=== PATIENT | female | born 1985 | race Caucasian/White ===

== ENCOUNTER → 2018-03-14 13:59 | Outpatient (CLI) | payer MEDICAID, SELFPAY ==
[2018-03-14 15:04] LABS: Hemoglobin A1C 10.6 % (4.5-6.2)
[2018-03-14 15:49] LABS: ALT 85 U/L (12-78); AST 96 U/L (15-37); Albumin 3.7 g/dL (3.4-5.0); Alkaline Phosphatase 72 U/L (46-116); Anion Gap 13.3 mmol/L (3-11); BUN 11 mg/dL (7-18); Bilirubin, Total 0.4 mg/dL (0.2-1.0); CO2 23.7 mmol/L (21.0-32.0); CREATININE 0.85 mg/dL (0.55-1.02); Calcium 9.2 mg/dL (8.5-10.1); Chloride 98 mmol/L (98-107); Cholesterol 247 mg/dL (50-200); Glucose 344 mg/dL (70-100); HDL Cholesterol 40 mg/dL (40-60); LDL CHOLESTEROL 168 mg/dL (<100); Potassium 4.5 mmol/L (3.5-5.1); Sodium 135 mmol/L (136-145); TSH 1.69 uIU/mL (0.358-3.74); Total Protein 7.7 g/dL (6.4-8.2); Triglyceride 242 mg/dL (30-150)
== END ==
PROVIDERS: PCP Family Medicine; Visit Provider Family Medicine
DX: E11.65 Type 2 diabetes mellitus with hyperglycemia (principal); E03.9 Hypothyroidism, unspecified
CPT/HCPCS: 36415; 80053; 80061; 83721; 82043; 82570; 83036; 84443

== ENCOUNTER 2018-05-21 09:06 | Outpatient (CLI) | payer MEDICAID, SELFPAY ==
[2018-05-21 10:29] LABS: HCT 40.3 % (36.0-46.0); HGB 13.4 g/dL (12.0-15.5); Mean Corp. HGB Concentration 33.3 g/dL (32.0-36.0); Mean Corpuscular Volume 84.3 fL (80-95); Mean Platelet Volume 12.2 fL (8.0-11.0); Platelet Count 155 x1000/uL (130-400); RBC 4.78 m/cumm (4.00-5.20); RBC Distribution Width 13.1 % (11.7-14.6); White Blood Cell Count 6.42 k/cumm (4.4-10.8)
[2018-05-21 11:28] LABS: ALT 60 U/L (12-78); AST 51 U/L (15-37); Albumin 3.5 g/dL (3.4-5.0); Alkaline Phosphatase 63 U/L (46-116); Anion Gap 10.5 mmol/L (3-11); BUN 11 mg/dL (7-18); Bilirubin, Total 0.3 mg/dL (0.2-1.0); CO2 27.5 mmol/L (21.0-32.0); CREATININE 0.77 mg/dL (0.55-1.02); Chloride 98 mmol/L (98-107); Glucose 363 mg/dL (70-100); Potassium 4.3 mmol/L (3.5-5.1); Sodium 136 mmol/L (136-145); Total Protein 7.1 g/dL (6.4-8.2)
[2018-05-21 11:31] LABS: HCG Quant, Pregnancy < 1 mIU/mL (1-3)
== END 2018-05-21 09:26 ==
PROVIDERS: PCP Family Medicine; Visit Provider Obstetrics & Gynecology Gynecology
DX: Z30.2 Encounter for sterilization (principal); E11.9 Type 2 diabetes mellitus without complications; K21.9 Gastro-esophageal reflux disease without esophagitis; E66.9 Obesity, unspecified; Z01.818 Encounter for other preprocedural examination
CPT/HCPCS: 36415; 80053; 85027; 86850; 86900; 86901; 84702

== ENCOUNTER 2018-09-08 12:41 | Emergency (ER) | payer MEDICAID, SELFPAY ==
[2018-09-08 13:02] VITALS: BP 146/92; PULSE 98; RESP 16; TEMP 36.7; O2SAT 100
[2018-09-08] MEDS: Amoxicillin 500 MG CAP PO (13:30)
--- NOTE | 2018-09-08 13:38 | W.ED.GENAD ---
Discharge Plan Disposition Patient Disposition: HOME Condition: Stable Discharge Details Chief Complaint: RespSymp Clinical Impression: Acute streptococcal pharyngitis, URI (upper respiratory infection) Primary Care Provider: Abbey Musa ED Provider: Alexandru Delgadillo Home Meds and New Rx's Prescriptions: New benzonatate 200 mg capsule 200 mg PO TID PRN (Reason: cough) Qty: 30 RF: 0 amoxicillin 500 mg capsule 500 mg PO BID Qty: 20 RF: 0 Continued ibuprofen 600 mg tablet 600 mg PO TID PRN (Reason: pain) Qty: 90 RF: 2 ProAir HFA 8.5 GM HFA aerosol inhaler 2 puff Inhalation Q4H PRN Qty: 1 RF: 6 aspirin 81 MG tablet,chewable 81 mg PO DAILY Qty: 90 RF: 4 lancets 1 EACH misc 1 ea Miscellaneous Fasting, PP and HS Qty: 400 RF: 12 Blood Glucose Test 1 EACH strip 1 ea Miscellaneous 6 times a day Qty: 360 RF: 5 medroxyprogesterone [Depo-Provera] 150 MG/1 ML suspension 150 mg IM [id number] Qty: 1 RF: 4 omeprazole 20 MG capsule,delayed release(DR/EC) 20 mg PO DAILY Qty: 90 RF: 4 Rosuvastatin Calcium 40 MG tablet 40 mg PO DAILY Qty: 90 RF: 4 pen needle, diabetic [BD Ultra-Fine Susy Pen Needle] 32 gauge x 5/32 needle 1 ea Miscellaneous QID PRN (Reason: diabetes type 2 E11.65) Qty: 120 RF: 6 Lantus Solostar U-100 Insulin 100 unit/mL (3 mL) insulin pen 70 unit subcut BID Qty: 2 RF: 5 Novolog Flexpen U-100 Insulin 100 unit/mL insulin pen 55 - 80 unit subcut TID Qty: 3 RF: 5 lisinopril 10 mg tablet 10 mg PO DAILY Qty: 90 RF: 4 No Action amitriptyline 75 mg tablet 75 mg PO HS Qty: 90 RF: 4 Discharge Instructions Instructions: Strep Throat (ED), Upper Respiratory Infection (ED) Additional Instructions: Take antibiotics as prescribed and until fully complete. You may continue to use [id number] therapies along with prescribed cough medication as needed for secondary symptoms. Stay well-hydrated and get plenty of rest and return to emergency department as needed for reassessment or follow-up with your primary care provider if not improving Stand Alone Forms: Work Release Referrals: Abbey Musa MD [Primary Care Provider] - (As needed for reassessment or if not improving) Discharge Data Discharge Date/Time-TO BE ENTERED AT DEPARTURE: 09/08/18 13:48 Medical Decision Making Patient presenting to the emergency department for upper respiratory tract infectious type symptoms. Patient states that these of been on for 3 or 4 days. Given patient's report of sore throat operations staff specialist security initiated protocol for rapid strep testing. Physical exam shows typical URI type symptoms without any signs of pneumonia, meningitis, retropharyngeal or peritonsillar abscess, epiglottitis, or sepsis. Patient is nontoxic in appearance. Rapid strep test shows positive for streptococcal illness. Discussed with patient risk versus benefit of amoxicillin therapy. Patient was prescribed amoxicillin along with Tessalon Perles and informed to continue rest and hydration along with using [id number] symptomatic medication if needed. Patient to return for new or worsening symptoms otherwise follow-up with primary care. After discussion of diagnosis and plan of care patient has no further needs, questions, or concerns and states clear understanding to return to the emergency department for any worsening symptoms. HPI General Mode of arrival: ambulatory. Date/Time Provider Initiated Documentation: 09/08/18 13:27. Limitations to Documentation: no limitations. Information obtained by: RN notes reviewed. History of Present Illness 33 year old F presents to the emergency department with the chief complaint of cold symptoms, described as moderate, with intensity rated at 6. Quality is described as aching, Patient started experiencing this day(s) (4) Related Data Home Medications Medication Instructions Recorded Confirmed ProAir HFA 2 puff INHALATION Q4H PRN #1 07/15/16 09/08/18 inhaler aspirin 81 mg PO DAILY #90 tab-cap 05/31/17 09/08/18 lancets #400 ea 07/11/17 09/08/18 Blood Glucose Test #360 strip 10/02/17 09/08/18 medroxyprogesterone [Depo-Provera] 150 mg IM [id number] #1 vial 02/07/18 09/08/18 omeprazole 20 mg PO DAILY #90 tab-cap 02/07/18 09/08/18 pen needle, diabetic 32 gauge x #120 ndl 05/09/18 09/08/18 insulin glargine (U-100) 100 70 unit SUBCUT BID #2 ml 06/13/18 09/08/18 unit/mL (3 mL) subcutaneous pen insulin aspart U- 100 100 unit/mL 55 - 80 unit SUBCUT TID #3 box 06/14/18 09/08/18 subcutaneous pen ibuprofen 600 mg tablet 600 mg PO TID PRN #90 tab 06/20/18 09/08/18 lisinopril 10 mg tablet 10 mg PO DAILY #90 tab-cap 08/02/18 09/08/18 amoxicillin 500 mg PO BID #20 cap 09/08/18 benzonatate 200 mg PO TID PRN #30 cap 09/08/18 amitriptyline 75 mg tablet 75 mg PO HS #90 tab-cap 09/10/18 Previous Rx's Medication Instructions Recorded aspirin 81 mg PO DAILY #90 tab-cap 05/31/17 lancets #400 ea 07/11/17 Blood Glucose Test #360 strip 10/02/17 medroxyprogesterone [Depo-Provera] 150 mg IM [id number] #1 vial 02/07/18 omeprazole 20 mg PO DAILY #90 tab-cap 02/07/18 pen needle, diabetic 32 gauge x #120 ndl 05/09/18 insulin glargine (U-100) 100 70 unit SUBCUT BID #2 ml 06/13/18 unit/mL (3 mL) subcutaneous pen insulin aspart U- 100 100 unit/mL 55 - 80 unit SUBCUT TID #3 box 06/14/18 subcutaneous pen ibuprofen 600 mg tablet 600 mg PO TID PRN #90 tab 06/20/18 lisinopril 10 mg tablet 10 mg PO DAILY #90 tab-cap 08/02/18 amoxicillin 500 mg PO BID #20 cap 09/08/18 benzonatate 200 mg PO TID PRN #30 cap 09/08/18 amitriptyline 75 mg tablet 75 mg PO HS #90 tab-cap 09/10/18 Allergies Allergy/AdvReac Type Severity Reaction Status Date / Time Latex, Natural Rubber Allergy Mild Skin Rash Unverified 09/08/18 13:12 metformin AdvReac Unknown DIARRHEA Unverified 09/08/18 13:12 General Stated Complaint: RespSymp JED: 4 Review of Systems Constitutional Reports body ache(s), Reports chills, Reports fever(s), Reports headache(s) and Reports malaise Eyes Denies eye discharge ENT Reports as per HPI, Denies ear discharge, Denies otalgia, Reports headache(s), Reports nasal congestion, Reports nasal discharge, Denies neck pain, Reports sinus pain, Reports sinus pressure, Reports sore throat and Denies throat swelling Cardiovascular Denies chest pain and Denies dyspnea Respiratory Reports cough and Denies dyspnea Musculoskeletal Denies joint swelling and Denies neck pain Integumentary/Breasts Denies rash Neurologic Reports headache(s) Allergic/Immunologic Denies throat swelling PFSH Medical History Anxiety Candidiasis of skin Carpal tunnel syndrome Diabetes mellitus Drusen of optic disc Lipids abnormal Morbid obesity Rh neg trauma Surgical History section (06/22/16) EGD - IV Sedation (~08/2011) Endoscopic Carpal Tunnel release Left wrist Sigmoidoscopy Family History Mother Substance abuse Diabetes Depression Father Essential hypertension Hyperlipidemia Brother Substance abuse Depression Grandfather No problems noted. Grandfather Diabetes Heart disease Hyperlipidemia Stroke Grandmother Personal history of malignant neoplasm Grandmother Diabetes Heart disease Stroke Sister Diabetes Sister No problems noted. Brother Substance abuse Diabetes Depression Social History adopted: Yes number of children: 3 highest education level completed: high school graduate current occupation: stay at home mom Smoking and Tabacco status: Former Tobacco Use alcohol intake: never Seatbelt use: always Exam Const General: cooperative, comfortable and no acute distress Orientation: alert and awake [facility] Head: normal to inspection, normocephalic and atraumatic Ears: hearing grossly normal bilaterally and TM's normal bilaterally General nose exam: external nose normal Face and sinus: normal facial exam, sinuses nontender and no erythema Mouth: oral mucosae normal, no drooling, no muffled voice and no trismus Throat: posterior oropharynx normal, uvula midline and abnormal tonsil bilaterally erythema and hypertrophy 1+ Neck Neck: normal visual inspection, full ROM, no meningeal signs, trachea midline, supple and lymphadenopathy (Mild anterior cervical) Resp Effort & Inspection: normal respiratory effort, able to speak in complete sentences and cough Quality of cough: dry Auscultation: clear to auscultation bilaterally Cardio Rate: regular rate Rhythm: regular rhythm Heart Sounds: S1 normal, S2 normal, normal S1 and S2, no click, no gallops, no murmurs and no rubs Skin General skin exam: no rashes or lesions noted and dry skin (warm) Neuro General: alert, awake, oriented x3, gait normal and moves all extremities Cognition: normal cognition Speech: speech normal Course Vital Signs Temperature 36.7 C 09/08/18 13:02 Pulse 98 H 09/08/18 13:02 Respiratory Rate 16 09/08/18 13:02 Blood Pressure 146/92 H 09/08/18 13:02 Pulse Oximetry 100 09/08/18 13:02 Temperature 36.7 C 09/08/18 13:02 Temperature Source Temporal Artery Scan 09/08/18 13:02 Pulse 98 H 09/08/18 13:02 Respiratory Rate 16 09/08/18 13:02 Respiratory Effort Non-Labored 09/08/18 13:13 Respiratory Depth Normal 09/08/18 13:13 Blood Pressure 146/92 H 09/08/18 13:02 Blood Pressure Position Sitting 09/08/18 13:02 Pulse Oximetry 100 09/08/18 13:02 Oxygen Delivery Method Room Air 09/08/18 13:02 Oxygen Flow Rate 0 09/08/18 13:02 Lab/Test Results Lab/Test Results: POC Strep Test-WOODY(Rapid) Start: 09/08/18 13:07 Freq: .Rapid Strep Test Status: Active Protocol: Document 09/08/18 13:16 SGL (Rec: 09/08/18 13:17 [id number] [id number]) Strep test-WOODY(Rapid)-POC POC-Strep test-WOODY (Rapid) Positive POC-Strep test-WOODY (Rapid) Positive
== END 2018-09-08 13:48 | disposition home or self-care (01) ==
PROVIDERS: Emergency Provider Nurse Practitioner Family; PCP Family Medicine
DX: J02.0 Streptococcal pharyngitis (principal)
CPT/HCPCS: 87880; 99283

== ENCOUNTER 2018-10-11 08:54 | Emergency (ER) | payer MEDICAID, SELFPAY ==
[2018-10-11 09:26] VITALS: BP 126/78; PULSE 105; RESP 16; TEMP 36.4; O2SAT 97
--- NOTE | 2018-10-11 10:53 | ED.GENADUL_ITS ---
Discharge Plan Disposition Patient Disposition: HOME Condition: Stable Discharge Details Chief Complaint: Sorethroat Clinical Impression: Acute streptococcal pharyngitis Primary Care Provider: Abbey Musa ED Provider: Alexandru Delgadillo Home Meds and New Rx's Prescriptions: New cephalexin 500 mg tablet 500 mg PO BID Qty: 20 RF: 0 Continued ibuprofen 600 mg tablet 600 mg PO TID PRN (Reason: pain) Qty: 90 RF: 2 [place] DM MV Pack See Patient Comments .ROUTE .COMPLEX RF: 0 albuterol sulfate [ProAir HFA] 8.5 GM HFA aerosol inhaler 2 puff Inhalation Q4H PRN Qty: 1 RF: 6 aspirin 81 MG tablet,chewable 81 mg PO DAILY Qty: 90 RF: 4 lancets 1 EACH misc 1 ea Miscellaneous Fasting, PP and HS Qty: 400 RF: 12 Blood Glucose Test 1 EACH strip 1 ea Miscellaneous 6 times a day Qty: 360 RF: 5 medroxyprogesterone [Depo-Provera] 150 MG/1 ML suspension 150 mg IM [id number] Qty: 1 RF: 4 omeprazole 20 MG capsule,delayed release(DR/EC) 20 mg PO DAILY Qty: 90 RF: 4 Rosuvastatin Calcium 40 MG tablet 40 mg PO DAILY Qty: 90 RF: 4 pen needle, diabetic [BD Ultra-Fine Susy Pen Needle] 32 gauge x 5/32 needle 1 ea Miscellaneous QID PRN (Reason: diabetes type 2 E11.65) Qty: 120 RF: 6 Lantus Solostar U-100 Insulin 100 unit/mL (3 mL) insulin pen 70 unit subcut BID Qty: 2 RF: 5 Novolog Flexpen U-100 Insulin 100 unit/mL insulin pen 55 - 80 unit subcut TID Qty: 3 RF: 5 lisinopril 10 mg tablet 10 mg PO DAILY Qty: 90 RF: 4 amitriptyline 75 mg tablet 75 mg PO HS Qty: 90 RF: 4 Discharge Instructions Instructions: Strep Throat (ED) Additional Instructions: Continue to take [id number] pain meds as needed. Take your antibiotic for the full 10 days and follow-up with your primary care provider for reassessment if not improving or return to emergency department for any new or worsening symptoms or further concerns you may have. Stand Alone Forms: Work Release Referrals: Abbey Musa MD [Primary Care Provider] - (As needed for reassessment if not improving) Discharge Data Discharge Date/Time-TO BE ENTERED AT DEPARTURE: 10/11/18 11:25 Medical Decision Making Patient presenting to the emergency department for chief complaint of sore throat. Patient states that this began 2 days ago. She does state malaise, mild dry nonproductive cough but significant sore throat and nausea. Patient has bilateral tonsillary hypertrophy with exudates and erythema, mild anterior cervical lymphadenopathy, otherwise clear lung sounds normal HEENT exam. Patient has no signs of meningitis, peritonsillar or retropharyngeal abscess, or epiglottitis. staffing specialist initiated protocol for rapid strep testing which is positive. Patient was recently on amoxicillin for strep pharyngitis 1 month ago. Patient placed up on Keflex for 10 days. Return precautions discussed. After discussion of diagnosis and plan of care patient has no further needs, questions, or concerns and states clear understanding to return to the emergency department for any worsening symptoms. HPI General Mode of arrival: ambulatory . Date/Time Provider Initiated Documentation: 10/11/18 10:03 . Limitations to Documentation: no limitations . Information obtained by: patient and RN notes reviewed . History of Present Illness 33 year old F presents to the emergency department with the chief complaint of sore throat, described as moderate, with intensity rated at 7. Quality is described as aching, and is localized to the mouth (sore throat). Patient started experiencing this day(s) (2) and it has been constant. No relieving factors improve symptom(s), Patient notes no other symptoms.. Related Data Home Medications Medication Instructions Recorded Confirmed albuterol sulfate [ProAir HFA] 2 puff INHALATION Q4H PRN #1 07/15/16 10/11/18 inhaler aspirin 81 mg PO DAILY #90 tab-cap 05/31/17 10/11/18 lancets #400 ea 07/11/17 09/08/18 Blood Glucose Test #360 strip 10/02/17 10/03/18 medroxyprogesterone [Depo-Provera] 150 mg IM [id number] #1 vial 02/07/18 10/11/18 omeprazole 20 mg PO DAILY #90 tab-cap 02/07/18 10/11/18 pen needle, diabetic 32 gauge x #120 ndl 05/09/18 10/03/18 insulin glargine (U-100) 100 70 unit SUBCUT BID #2 ml 06/13/18 10/11/18 unit/mL (3 mL) subcutaneous pen insulin aspart U- 100 100 unit/mL 55 - 80 unit SUBCUT TID #3 box 06/14/18 10/11/18 subcutaneous pen ibuprofen 600 mg tablet 600 mg PO TID PRN #90 tab 06/20/18 10/11/18 lisinopril 10 mg tablet 10 mg PO DAILY #90 tab-cap 08/02/18 10/11/18 amitriptyline 75 mg tablet 75 mg PO HS #90 tab-cap 09/10/18 10/11/18 [place] DM MV Pack See Rx Instructions .ROUTE .COMPLEX 10/03/18 10/11/18 cephalexin 500 mg PO BID #20 tab 10/11/18 Previous Rx's Medication Instructions Recorded aspirin 81 mg PO DAILY #90 tab-cap 05/31/17 lancets #400 ea 07/11/17 Blood Glucose Test #360 strip 10/02/17 medroxyprogesterone [Depo-Provera] 150 mg IM [id number] #1 vial 02/07/18 omeprazole 20 mg PO DAILY #90 tab-cap 02/07/18 pen needle, diabetic 32 gauge x #120 ndl 05/09/18 insulin glargine (U-100) 100 70 unit SUBCUT BID #2 ml 06/13/18 unit/mL (3 mL) subcutaneous pen insulin aspart U- 100 100 unit/mL 55 - 80 unit SUBCUT TID #3 box 06/14/18 subcutaneous pen ibuprofen 600 mg tablet 600 mg PO TID PRN #90 tab 06/20/18 lisinopril 10 mg tablet 10 mg PO DAILY #90 tab-cap 08/02/18 amitriptyline 75 mg tablet 75 mg PO HS #90 tab-cap 09/10/18 cephalexin 500 mg PO BID #20 tab 10/11/18 Allergies Allergy/AdvReac Type Severity Reaction Status Date / Time Latex, Natural Rubber Allergy Mild Skin Rash Unverified 10/11/18 09:28 metformin AdvReac Unknown DIARRHEA Unverified 10/11/18 09:28 General Stated Complaint: Sorethroat JED: 4 Review of Systems Constitutional Reports chills, Denies fever(s), Denies headache(s) and Reports malaise ENT Denies change in voice, Denies dysphagia, Denies otalgia, Denies headache(s), Denies hoarseness, Denies lip swelling, Denies mouth lesions, Denies nasal congestion, Reports odynophagia, Reports sore throat, Denies throat swelling and Denies tongue swelling Cardiovascular Denies chest pain Respiratory Denies chest congestion and Reports cough Gastrointestinal Denies dysphagia and Reports odynophagia Neurologic Denies headache(s) Allergic/Immunologic Denies lip swelling, Denies throat swelling and Denies tongue swelling PFSH Medical History Anxiety Candidiasis of skin Carpal tunnel syndrome Diabetes mellitus Drusen of optic disc Lipids abnormal Morbid obesity Rh neg trauma Surgical History section (06/22/16) EGD - IV Sedation (~08/2011) Endoscopic Carpal Tunnel release Left wrist Sigmoidoscopy Family History Mother Substance abuse Diabetes Depression Father Essential hypertension Hyperlipidemia Brother Substance abuse Depression Grandfather No problems noted. Grandfather Diabetes Heart disease Hyperlipidemia Stroke Grandmother Personal history of malignant neoplasm Grandmother Diabetes Heart disease Stroke Sister Diabetes Sister No problems noted. Brother Substance abuse Diabetes Depression Social History Smoking/Tobacco Use Status: Never Alcohol Intake: never Drug use: Never Adopted: Yes Seatbelt use: always Do you feel safe in your relationship?: Yes Exam Const General: cooperative, healthy appearing, comfortable, no acute distress and not ill appearing Orientation: alert, awake and oriented x3 HENMT Head: normal to inspection and normocephalic Ears: hearing grossly normal bilaterally, external ears normal, TM's normal bilaterally and mastoids normal General nose exam: external nose normal and nares normal Face and sinus: normal facial exam and sinuses nontender Mouth: oral mucosae normal, lip normal, tongue normal, no audible dysphonia, no drooling and no trismus Throat: uvula midline, abnormal tonsil bilaterally erythema, exudates and hypertrophy 2+ and no peritonsillar masses Neck Neck: normal visual inspection, full ROM, no meningeal signs and lymphadenopathy (mild anterior cervical) Resp Effort & Inspection: normal respiratory effort, able to speak in complete sentences and no stridor Auscultation: clear to auscultation bilaterally Cardio Rate: regular rate Rhythm: regular rhythm Heart Sounds: S1 normal and S2 normal Skin General skin exam: no rashes or lesions noted Course Vital Signs Temperature 36.4 C L 10/11/18 09:26 Pulse 105 H 10/11/18 09:26 Respiratory Rate 16 10/11/18 09:26 Blood Pressure 126/78 10/11/18 09:26 Pulse Oximetry 97 10/11/18 09:26 Temperature 36.4 C L 10/11/18 09:26 Temperature Source Skin 10/11/18 09:26 Pulse 105 H 10/11/18 09:26 Respiratory Rate 16 10/11/18 09:26 Respiratory Effort Non-Labored 10/11/18 09:26 Blood Pressure 126/78 10/11/18 09:26 Blood Pressure Position Sitting 10/11/18 09:26 Pulse Oximetry 97 10/11/18 09:26 Oxygen Delivery Method Room Air 10/11/18 09:26 Oxygen Flow Rate 0 10/11/18 09:26 Pain Level 7 10/11/18 09:26 Lab/Test Results Lab/Test Results: POC Strep Test-WOODY(Rapid) Start: 10/11/18 09:30 Freq: .Rapid Strep Test Status: Active Protocol: Document 10/11/18 09:31 MMQ (Rec: 10/11/18 09:31 MMQ [id number]) Strep test-WOODY(Rapid)-POC POC-Strep test-WOODY (Rapid) Positive POC-Strep test-WOODY (Rapid) Positive
== END 2018-10-11 11:25 | disposition home or self-care (01) ==
PROVIDERS: Emergency Provider Nurse Practitioner Family; PCP Family Medicine
DX: J02.0 Streptococcal pharyngitis (principal)
CPT/HCPCS: 87880; 99283

== ENCOUNTER 2019-05-01 12:42 | Emergency (ER) | payer SELFPAY ==
[2019-05-01 12:50] VITALS: BP 138/81; RESP 18; TEMP 36.7; O2SAT 97
--- NOTE | 2019-05-01 12:59 | W.ED.GENAD ---
Discharge Plan Disposition Patient Disposition: HOME Condition: Good Discharge Details Chief Complaint: Sorethroat Clinical Impression: Acute streptococcal pharyngitis Primary Care Provider: Abbey Musa ED Provider: Keith Morfin Home Meds and New Rx's Prescriptions: New amoxicillin 500 mg capsule 500 mg PO BID 10 Days Qty: 20 RF: 0 No Action ibuprofen 600 mg tablet 600 mg PO TID PRN (Reason: pain) Qty: 90 RF: 2 [place] DM MV Pack See Rx Instructions .ROUTE .COMPLEX RF: 0 albuterol sulfate [ProAir HFA] 8.5 GM HFA aerosol inhaler 2 puff Inhalation Q4H PRN Qty: 1 RF: 6 aspirin 81 MG tablet,chewable 81 mg PO DAILY Qty: 90 RF: 4 (DME) lancets 1 EACH misc 1 ea Miscellaneous Fasting, PP and HS Qty: 400 RF: 12 medroxyprogesterone [Depo-Provera] 150 MG/1 ML suspension 150 mg IM [id number] Qty: 1 RF: 4 omeprazole 20 MG capsule,delayed release(DR/EC) 20 mg PO DAILY Qty: 90 RF: 4 Rosuvastatin Calcium 40 MG tablet 40 mg PO DAILY Qty: 90 RF: 4 (DME) pen needle, diabetic [BD Ultra-Fine Susy Pen Needle] 32 gauge x 5/32 needle 1 ea Miscellaneous QID Qty: 120 RF: 6 Lantus Solostar U-100 Insulin 100 unit/mL (3 mL) insulin pen 70 unit subcut BID Qty: 2 RF: 5 Novolog Flexpen U-100 Insulin 100 unit/mL insulin pen 55 - 80 unit subcut TID Qty: 3 RF: 5 lisinopril 10 mg tablet 10 mg PO DAILY Qty: 90 RF: 4 amitriptyline 75 mg tablet 75 mg PO HS Qty: 90 RF: 4 (DME) Blood Glucose Test strip 1 ea Miscellaneous 6 times a day Qty: 360 RF: 5 cephalexin 500 mg tablet 500 mg PO BID Qty: 20 RF: 0 Discharge Instructions Instructions: Pharyngitis (ED) Additional Instructions: You have strep pharyngitis. Thankfully your physical exam and vital signs show no evidence of pneumonia. Please take the antibiotic as directed. Please rest, drink plenty of fluids, and take 600 mg of ibuprofen every 6 hours and up to 1000 mg of Tylenol every 6 hours. If you notice any worsening of your symptoms, or any new symptoms such as vomiting, diarrhea, fever, chills, shortness of breath, chest pain, numbness, weakness, or fainting , please return immediately to the emergency department for reevaluation. Please follow up with your primary care provider as soon as possible for reassessment and reevaluation. As always, it was a pleasure participating in your medical care today. Stand Alone Forms: Work Release Referrals: Abbey Musa MD [Primary Care Provider] - Medical Decision Making This is a pleasant 33-year-old female who presents with 2 to 3 days of sore throat runny nose cough and congestion. She is out of the window for Tamiflu. She denies any fever. Lung sounds are clear, oxygen saturation normal. Posterior oropharynx is notably erythematous with petechiae and tonsillar swelling and exudate. Strep test is positive. Patient may feel would benefit from treatment. Will start amoxicillin, recommend close follow-up with her PCP. Discussed red flags which to return. She appears clinically stable for discharge. I have extensively reviewed the treatment plan and discharge instructions with the patient. I have addressed all patient concerns at this time. The patient was made aware of what symptoms to monitor for that would warrant a return to the emergency department. Discussed the plan with the patient, they demonstrate verbal understanding and agreement with our assessment and plan at this time. HPI General Date/Time Provider Initiated Documentation: 05/01/19 12:49. HPI Narrative: This is a pleasant 33-year-old female with a past medical history of type 2 diabetes, who presents today for evaluation of cough runny nose and congestion. Symptoms have been present for the last 3 days, she has a mild sore throat, in conjunction with this. She denies any fever or chills. She denies any chest pain or shortness of breath. Denies PE risk factors such as recent long car rides, immobilization, recent surgery, prior history of DVT or PE, family history of PE or DVT, morbid obesity, exogenous estrogen and smoking, hemoptysis, history of cancer. She denies any significant headache or neck pain. She does admit to other contacts at work with similar symptoms. Related Data Home Medications Medication Instructions Recorded Confirmed albuterol sulfate [ProAir HFA] 2 puff INHALATION Q4H PRN #1 07/15/16 10/11/18 inhaler aspirin 81 mg PO DAILY #90 tab-cap 05/31/17 10/11/18 lancets #400 ea 07/11/17 09/08/18 medroxyprogesterone [Depo-Provera] 150 mg IM [id number] #1 vial 02/07/18 10/11/18 omeprazole 20 mg PO DAILY #90 tab-cap 02/07/18 10/11/18 pen needle, diabetic 32 gauge x #120 ndl 05/09/18 10/03/18 5 insulin glargine 100 unit/mL (3 70 unit SUBCUT BID #2 ml 06/13/18 10/11/18 mL) subcutaneous pen insulin aspart U-100 100 unit/mL 55 - 80 unit SUBCUT TID #3 box 06/14/18 10/11/18 (3 mL) subcutaneous pen ibuprofen 600 mg tablet 600 mg PO TID PRN #90 tab 06/20/18 10/11/18 lisinopril 10 mg tablet 10 mg PO DAILY #90 tab-cap 08/02/18 10/11/18 amitriptyline 75 mg tablet 75 mg PO HS #90 tab-cap 09/10/18 10/11/18 [place] DM MV Pack See Rx Instructions .ROUTE .COMPLEX 10/03/18 10/11/18 cephalexin 500 mg PO BID #20 tab 10/11/18 blood sugar diagnostic #360 strip 11/29/18 amoxicillin 500 mg PO BID 10 Days #20 cap 05/01/19 Previous Rx's Medication Instructions Recorded aspirin 81 mg PO DAILY #90 tab-cap 05/31/17 lancets #400 ea 07/11/17 medroxyprogesterone [Depo-Provera] 150 mg IM [id number] #1 vial 02/07/18 omeprazole 20 mg PO DAILY #90 tab-cap 02/07/18 pen needle, diabetic 32 gauge x #120 ndl 05/09/18 5 insulin glargine 100 unit/mL (3 70 unit SUBCUT BID #2 ml 06/13/18 mL) subcutaneous pen insulin aspart U-100 100 unit/mL 55 - 80 unit SUBCUT TID #3 box 06/14/18 (3 mL) subcutaneous pen ibuprofen 600 mg tablet 600 mg PO TID PRN #90 tab 06/20/18 lisinopril 10 mg tablet 10 mg PO DAILY #90 tab-cap 08/02/18 amitriptyline 75 mg tablet 75 mg PO HS #90 tab-cap 09/10/18 cephalexin 500 mg PO BID #20 tab 10/11/18 blood sugar diagnostic #360 strip 11/29/18 amoxicillin 500 mg PO BID 10 Days #20 cap 05/01/19 Allergies Allergy/AdvReac Type Severity Reaction Status Date / Time Latex, Natural Rubber Allergy Mild Skin Rash Unverified 10/11/18 09:28 metformin AdvReac Unknown DIARRHEA Unverified 10/11/18 09:28 General Stated Complaint: Sorethroat JED: 3 Review of Systems Review of Systems ROS Unobtainable: All systems reviewed & are unremarkable except as noted in HPI and below PFSH Social History Smoking/Tobacco Use Status: Former Tobacco Use Alcohol Intake: never Drug use: Occasionally Substance use type: marijuana Adopted: Yes Number of Children: 3 current occupation: stay at home mom Seatbelt use: always Do you feel safe at home: Yes Do you feel safe in your relationship?: Yes Exam Narrative Exam Narrative: 1.Const: Well-nourished, Well-developed, appearing stated age 2.Eyes: PERRL, no conjunctival injection, and symmetrical lids. 3.ENT: Atraumatic external nose and ears. Moist MM. Neck: Symmetric, trachea midline, No thyromegaly. Erythematous tonsils and posterior oropharynx, minimal petechiae, minimal tonsillar exudate. No evidence of peritonsillar abscess. Patient demonstrates good movement of cervical neck. There is no nuchal rigidity, no nuchal tenderness. Patient is able to flex the neck without any difficulty or significant pain. Negative Kernig's and Brudzinski sign. No evidence of otitis media or externa. 4.CVS: +S1/S2, No murmurs or gallops. Peripheral pulses 2+ and equal in all extremities. Brisk capillary refill in all extremities. 5.RESP: Unlabored respiratory effort. Clear to auscultation bilaterally. No wheezes rales or rhonchi 6.GI: Soft, Nontender/Nondistended, No hepatosplenomegaly. No guarding or rebound. 7.MSK: Normocephalic/Atraumatic, Extremities w/o deformity or ttp No cyanosis or clubbing, Normal movement of all extremities 8.Skin: Warm, Dry. No rashes or lesions. 9.Neuro: integration director II-XII grossly intact. Sensation grossly intact, no focal neurologic deficits. 10.Psych: (AAO) x3. Appropriate mood and affect Course Vital Signs Vital signs: Vital Signs Temperature 36.7 C 05/01/19 12:50 Respiratory Rate 18 05/01/19 12:50 Blood Pressure 138/81 05/01/19 12:50 Pulse Oximetry 97 05/01/19 12:50 Temperature 36.7 C 05/01/19 12:50 Temperature Source Temporal Artery Scan 05/01/19 12:50 Respiratory Rate 18 05/01/19 12:50 Blood Pressure 138/81 05/01/19 12:50 Pulse Oximetry 97 05/01/19 12:50 Oxygen Delivery Method Room Air 05/01/19 12:50 Oxygen Flow Rate 0 05/01/19 12:50 Pain Level 3 05/01/19 12:50
== END 2019-05-01 13:16 | disposition home or self-care (01) ==
PROVIDERS: Emergency Provider Student in an Organized Health Care Education/Training Program; PCP Family Medicine
DX: J02.0 Streptococcal pharyngitis (principal); E11.9 Type 2 diabetes mellitus without complications; Z79.4 Long term (current) use of insulin
CPT/HCPCS: 87880; 99283

== ENCOUNTER 2019-05-17 20:37 | Emergency (ER) | payer SELFPAY ==
[2019-05-17 20:41] VITALS: BP 145/69; PULSE 109; RESP 16; TEMP 36.7; O2SAT 97
--- NOTE | 2019-05-17 20:54 | ED.GENADUL_ITS ---
Discharge Plan Disposition Patient Disposition: HOME Condition: Fair Discharge Details Chief Complaint: Sorethroat Clinical Impression: Strep throat Primary Care Provider: Abbey Musa ED Provider: Yisel Demarco Home Meds and New Rx's Prescriptions: New clindamycin HCl 300 mg capsule 300 mg PO TID 10 Days Qty: 30 RF: 0 Continued ibuprofen 600 mg tablet 600 mg PO TID PRN (Reason: pain) Qty: 90 RF: 2 albuterol sulfate [ProAir HFA] 8.5 GM HFA aerosol inhaler 2 puff Inhalation Q4H PRN Qty: 1 RF: 6 aspirin 81 MG tablet,chewable 81 mg PO DAILY Qty: 90 RF: 4 (DME) lancets 1 EACH misc 1 ea Miscellaneous Fasting, PP and HS Qty: 400 RF: 12 omeprazole 20 MG capsule,delayed release(DR/EC) 20 mg PO DAILY Qty: 90 RF: 4 Rosuvastatin Calcium 40 MG tablet 40 mg PO DAILY Qty: 90 RF: 4 (DME) pen needle, diabetic [BD Ultra-Fine Susy Pen Needle] 32 gauge x 5/32 needle 1 ea Miscellaneous QID Qty: 120 RF: 6 Lantus Solostar U-100 Insulin 100 unit/mL (3 mL) insulin pen 70 unit subcut BID Qty: 2 RF: 5 Novolog Flexpen U-100 Insulin 100 unit/mL insulin pen 55 - 80 unit subcut TID Qty: 3 RF: 5 lisinopril 10 mg tablet 10 mg PO DAILY Qty: 90 RF: 4 amitriptyline 75 mg tablet 75 mg PO HS Qty: 90 RF: 4 (DME) Blood Glucose Test strip 1 ea Miscellaneous 6 times a day Qty: 360 RF: 5 Discharge Instructions Instructions: Clindamycin (By mouth), Upper Respiratory Infection (ED) Additional Instructions: Encourage hydration. Tylenol and/or ibuprofen as needed for discomfort. Please take the clindamycin as prescribed. Even if symptoms improve, please the entire course. Please follow-up with primary care next week for reevaluation. Please take probiotic while on the antibiotics, these are available [id number] at pharmacy. If you develop difficulty breathing, shortness of breath, inability stay hydrated or other new/worsening symptoms please seek care urgently once again. Remember to change her toothbrush 48 hours after beginning the antibiotic Referrals: Abbey Musa MD [Primary Care Provider] - Discharge Data Discharge Date/Time-TO BE ENTERED AT DEPARTURE: 05/17/19 23:00 Medical Decision Making Patient is a 34-year-old female presents today with chief complaint of pleuritic chest pain. She was seen here recently diagnosed with strep throat. Patient was treated with amoxicillin. She reports the symptoms are completely resolved but came back a few days after stopping the antibiotic. Reports fevers/ chills. Has noted recurrence of sore throat. States pleuritic chest pain began over the past few days and have progressively been increasing. States that now the pain is being associate of her work. Reports the pain comes or feels short of breath. States she is had a mild cough. No GI upset. Patient reports that she had been laying low with his bilirubin sedentary since her recent diagnosis of Streptococcus pharyngitis. She is not on any hormonal therapy. No recent travel. No other recent antibiotics. Reports she did finish the entire course. Chest pain is not exertional. No bilateral lower extremity edema. No calf tenderness. On exam, patient is resting comfortably. She does not appear in any respiratory distress. Bilateral tonsillar swelling, no erythema. I do not appreciate any peritonsillar mass or swelling of the tongue. She is handling her secretions well. Patient does have pain with AP compression of the chest wall. Lungs are clear bilaterally. No tenderness elicited with palpation about the abdomen. I find it unlikely, I am unable to rule out a possible pulmonary embolism as the patient is tachycardic. Plan to screen with a d-dimer. Rapid strep testing was positive once again. Labs significant for white count of 13. D-dimer is normal at 267. Labs otherwise unremarkable. Plan to begin her once again on antibiotics. I feel the recurrence is likely associated with her not following recommendation to change her toothbrush. Patient was quite hesitant to expose question I encouraged that she do so. We also discussed other sources that may be re- exposing her to infection. Encourage hydration. She was given return precautions. Advise follow-up with primary care in 1 week if not improved. All of her questions and concerns were addressed and she is in agreement with this plan. HPI General Mode of arrival: ambulatory . Date/Time Provider Initiated Documentation: 05/17/19 20:53 . Limitations to Documentation: no limitations . Information obtained by: patient . HPI Narrative: Patient is a 34 year old female presenting today with c/c of recurrent URI symptoms with sore throat, fevers, body aches. She was recently here and diagnosed with strep throat, treated with amoxicillin. Reports that she felt improved until yesterday when she had recurrence of her symptoms. Her chief concern at this time however is pleuritic chest pain. She denies any cough but states she is been having severe pain with inspiration. States that this discomfort makes her feel short of breath. No recent travel. She denies any estrogen therapy. No personal history of cardiac clotting disorders. She reports she stopped and does not know her family history. Not having any difficulty swallowing. Has not taken anything for her discomfort or for fever. Related Data Home Medications Medication Instructions Recorded Confirmed albuterol sulfate [ProAir HFA] 2 puff INHALATION Q4H PRN #1 07/15/16 05/17/19 inhaler aspirin 81 mg PO DAILY #90 tab-cap 05/31/17 05/17/19 lancets #400 ea 07/11/17 05/17/19 omeprazole 20 mg PO DAILY #90 tab-cap 02/07/18 05/17/19 pen needle, diabetic 32 gauge x #120 ndl 05/09/18 05/17/19 5/32 insulin glargine 100 unit/mL (3 70 unit SUBCUT BID #2 ml 06/13/18 05/17/19 mL) subcutaneous pen insulin aspart U-100 100 unit/mL 55 - 80 unit SUBCUT TID #3 box 06/14/18 05/17/19 (3 mL) subcutaneous pen ibuprofen 600 mg tablet 600 mg PO TID PRN #90 tab 06/20/18 05/17/19 lisinopril 10 mg tablet 10 mg PO DAILY #90 tab-cap 08/02/18 05/17/19 amitriptyline 75 mg tablet 75 mg PO HS #90 tab-cap 09/10/18 05/17/19 blood sugar diagnostic #360 strip 11/29/18 05/17/19 clindamycin HCl 300 mg PO TID 10 Days #30 cap 05/17/19 Previous Rx's Medication Instructions Recorded aspirin 81 mg PO DAILY #90 tab-cap 05/31/17 lancets #400 ea 07/11/17 omeprazole 20 mg PO DAILY #90 tab-cap 02/07/18 pen needle, diabetic 32 gauge x #120 ndl 05/09/1832 insulin glargine 100 unit/mL (3 70 unit SUBCUT BID #2 ml 06/13/18 mL) subcutaneous pen insulin aspart U-100 100 unit/mL 55 - 80 unit SUBCUT TID #3 box 06/14/18 (3 mL) subcutaneous pen ibuprofen 600 mg tablet 600 mg PO TID PRN #90 tab 06/20/18 lisinopril 10 mg tablet 10 mg PO DAILY #90 tab-cap 08/02/18 amitriptyline 75 mg tablet 75 mg PO HS #90 tab-cap 09/10/18 blood sugar diagnostic #360 strip 11/29/18 clindamycin HCl 300 mg PO TID 10 Days #30 cap 05/17/19 Allergies Allergy/AdvReac Type Severity Reaction Status Date / Time Latex, Natural Rubber Allergy Mild Skin Rash Unverified 05/17/19 20:45 metformin AdvReac Unknown DIARRHEA Unverified 05/17/19 20:45 General Stated Complaint: Sorethroat JED: 4 Review of Systems Constitutional Constitutional: Reports as per HPI, Denies chills, Denies fever(s) and Denies headache(s) Eyes Eyes: Reports as per HPI, Denies eye discharge and Denies irritation ENT Ears, Nose, Mouth, and Throat: Reports as per HPI, Denies change in voice, Denies headache(s), Denies lip swelling, Reports nasal congestion, Reports nasal discharge, Denies sinus pain, Denies sinus pressure, Reports sore throat, Denies throat swelling and Denies tongue swelling Cardiovascular Cardiovascular: Reports as per HPI, Denies chest pain, Reports chest pain with activity (describes anterior pleuritic CP), Denies lightheadedness, Denies radiating jaw, neck or arm pain, Denies palpitations, Reports dyspnea and Denies dyspnea on exertion Respiratory Respiratory: Reports as per HPI, Denies cough, Denies hemoptysis, Reports pain on inspiration, Reports pain with cough, Reports dyspnea, Denies dyspnea on exertion and Denies wheezing Gastrointestinal Gastrointestinal: Reports as per HPI, Denies abdominal pain, Denies change in bowel habits, Denies nausea and Denies vomiting Integumentary/Breasts Skin/Breast: Reports as per HPI and Denies rash Neurologic Neurologic: Reports as per HPI and Denies headache(s) Endocrine Endocrine: Denies palpitations Allergic/Immunologic Allergic/Immunologic: Denies lip swelling, Denies throat swelling, Denies tongue swelling and Denies wheezing [facility] Medical History Anxiety Longstanding. Was in counseling and had taken Paxil in past with +/- results. 2004 had psych hospitalization. Is applying for disability because of anxiety. Candidiasis of skin 2013 during beneath axilla Carpal tunnel syndrome Diabetes mellitus Dx 2009. Began Lantus 2012 with Novalog added. 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 Has not followed up with optomotrist Lipids abnormal Morbid obesity 02/2018 BMI 48 kg/m2 Rh neg trauma 2005 laceration Surgical History section (06/22/16) 01/02/14 PC/S. EGD - IV Sedation (~08/2011) DR. CANALES Endoscopic Carpal Tunnel release Left wrist 02/2013 Sigmoidoscopy Social History Smoking/Tobacco Use Status: Former Tobacco Use Alcohol Intake: never Drug use: Occasionally Substance use type: marijuana Adopted: Yes Number of Children: 3 current occupation: stay at home mom Seatbelt use: always Do you feel safe at home: Yes Do you feel safe in your relationship?: Yes Exam Const General: cooperative, healthy appearing, comfortable, no acute distress, well developed and well groomed Nutritional Appearance: well nourished and overweight Orientation: alert and awake [facility] Head: normal to inspection, normocephalic and atraumatic Ears: hearing grossly normal bilaterally, external ears normal and TM's normal bilaterally General nose exam: external nose normal and nares normal Face and sinus: normal facial exam, sinuses nontender and face symmetric Mouth: oral mucosae normal, lip normal, tongue normal, oropharynx normal, moist mucous membranes, no muffled voice and no trismus Teeth and gingiva: dentition normal Throat: uvula midline, abnormal tonsil bilaterally erythema and hypertrophy 2+, no peritonsillar masses, uvula not displaced and no uvular edema Eyes General: appearance normal, both eyes and all related structures Neck Neck: normal visual inspection, full ROM, no lymphadenopathy and no meningeal signs Chest Chest: normal inspection of the chest, normal palpation of entire chest wall, no crepitus and tenderness (with AP compression of chest) Resp Effort & Inspection: normal respiratory effort, able to speak in complete sentences and no respiratory distress Auscultation: clear to auscultation bilaterally, no rales, no rhonchi and no wheezes Cardio Rate: regular rate Rhythm: regular rhythm Heart Sounds: S1 normal and S2 normal GI Inspection: normal to inspection Palpation: soft, no hepatosplenomegaly, not firm, no guarding and nontender Percussion: normal to percussion Auscultation: normal bowel sounds Skin General skin exam: no rashes or lesions noted Neuro General: alert and awake Cognition: normal cognition Speech: speech normal Gait: normal gait Extrem General: normal to inspection, no joint enlargement, no pedal edema, no calf tenderness, normal gait and no calf tenderness bilaterally Psych Appearance: grossly normal and well kempt Mental Status: mental status grossly normal Speech and Movement: speech and movement normal Course Vital Signs Vital signs: Vital Signs Temperature 36.7 C 05/17/19 20:41 Pulse 109 H 05/17/19 20:41 Respiratory Rate 16 05/17/19 20:41 Blood Pressure 145/69 H 05/17/19 20:41 Pulse Oximetry 97 05/17/19 20:41 Temperature 36.7 C 05/17/19 20:41 Temperature Source Skin 05/17/19 20:41 Pulse 109 H 05/17/19 20:41 Respiratory Rate 16 05/17/19 20:41 Respiratory Effort 05/17/19 20:46 Blood Pressure 145/69 H 05/17/19 20:41 Blood Pressure Position Sitting 05/17/19 20:41 Pulse Oximetry 97 05/17/19 20:41 Oxygen Delivery Method Room Air 05/17/19 20:41 Oxygen Flow Rate 0 05/17/19 20:41 Pain Level 6 05/17/19 20:41 Comment 05/17/19 20:41
[2019-05-17] MEDS: Acetaminophen 500 MG TAB 1000 MG PO (21:41)
[2019-05-17] MEDS: Normal Saline 1,000 ML 1000 ML IV (21:41)
[2019-05-17 22:02] LABS: Abs Immature Grans 0.03 k/cumm (0.0-0.09); Absolute Eosinophil Count 0.09 k/cumm (0.0-0.7); Absolute Lymphocyte Count 1.72 k/cumm (1.2-3.4); Basophils % 0.2; Eosinophils % 0.7; HGB 12.5 g/dL (12.0-15.5); Immature Grans % 0.2; Lymphocytes % 13.1; Mean Corp. HGB Concentration 33.8 g/dL (32.0-36.0); Mean Corpuscular Hemoglobin 27.6 pg (27.0-33.0); Mean Corpuscular Volume 81.7 fL (80-95); Mean Platelet Volume 12.1 fL (8.0-11.0); Monocytes % 7.6; Neutrophils % 78.2; Platelet Count 204 x1000/uL (130-400); RBC 4.53 m/cumm (4.00-5.20)
[2019-05-17 22:07] LABS: Absolute Basophil Count 0.03 k/cumm (0.0-0.2); Absolute Neutrophil Count 10.24 k/cumm (1.2-6.7)
--- NOTE | 2019-05-17 22:11 | NUR.NOTE ---
Nursing Note:Positive rapid strep screen
[2019-05-17 22:12] LABS: ALT 40 U/L (14-59); AST 23 U/L (15-37); Albumin 3.6 g/dL (3.4-5.0); Alkaline Phosphatase 64 U/L (46-116); Anion Gap 10.8 mmol/L (3-11); BUN 7 mg/dL (7-18); Bilirubin, Total 0.9 mg/dL (0.2-1.0); CO2 27.2 mmol/L (21.0-32.0); CREATININE 0.71 mg/dL (0.55-1.02); Calcium 8.8 mg/dL (8.5-10.1); Chloride 98 mmol/L (98-107); Glucose 220 mg/dL (70-100); Potassium 3.8 mmol/L (3.5-5.1); Sodium 136 mmol/L (136-145); Total Protein 7.8 g/dL (6.4-8.2)
[2019-05-17 22:27] LABS: D-Dimer 267 ng/mlFEU (<500)
[2019-05-17] MEDS: Clindamycin 150 MG CAP 300 MG PO ×2 (22:55)
[2019-05-17 23:04] VITALS: BP 146/76; PULSE 90; RESP 16; TEMP 36.5; O2SAT 100
== END 2019-05-17 23:00 | disposition home or self-care (01) ==
PROVIDERS: Emergency Provider Physician Assistant; PCP Family Medicine
DX: J02.0 Streptococcal pharyngitis (principal); R50.9 Fever, unspecified
CPT/HCPCS: 80053; 87880; 96360; 99283; 85025; 85379

== ENCOUNTER 2019-10-22 02:07 | Outpatient (CLI) | payer MEDICAID, SELFPAY ==
--- NOTE | 2019-10-22 07:00 | DI.US_ITS ---
EXAM: US OB 1ST TRIMESTER CLINICAL HISTORY: ? DATES, Z34.90 TECHNIQUE: Ultrasound performed using standard protocol. COMPARISON: OB ASSESSMENT - WEIGHT/ENRIQUE from 06/20/2016 FINDINGS: Ob ultrasound was performed utilizing 1st trimester protocol. There is a single viable intrauterine gestation with crown-rump length measurements consistent with gestational age 7 weeks 1 day and an ED C of 06/08/2020. cardiac rate is 137 BPM. The trophoblastic is unremarkable in appearance. Unremarkable appearance of the ovaries. No free fluid identified in cul-de-sac. IMPRESSION: DATA REPOSITORY:
== END 2019-10-22 02:27 ==
PROVIDERS: PCP Family Medicine; Visit Provider Advanced Practice Midwife
DX: Z34.91 Encounter for supervision of normal pregnancy, unspecified, first trimester (principal); Z3A.01 Less than 8 weeks gestation of pregnancy
CPT/HCPCS: 76801

== ENCOUNTER 2019-11-07 13:16 | Outpatient (REF) | payer MEDICAID, SELFPAY ==
--- NOTE | 2019-11-07 12:00 | PAPFT_PTH ---
PATIENT: Lynn Harvey LOC: [facility] U#:[id number] AGE/SX: 34/F ROOM: RE11/07/[address]: Bart Cordova RN : 1985 BED: DIS: 11/07/2019 SPEC #: [id number] RECD: 11/07/19 18:15 STATUS: YAMILE REQ #: [id number] AMBROSE: 11/07/19 12:[address]: Bart Cordova DEPT: [facility] Cytology RECD BY: Palmira Esposito ENTERED: 11/07/19 18:16 SP TYPE: PAPFT DIEUDONNE DR: Abbey Musa MD Tissues: 1 - CX/ENDOCX FOR PAP SMEARS Procedures: PAP THIN PREP/UVM Screening Comments: [id number]
[2019-11-07 14:23] LABS: *AMPHETAMINES SCREEN URINE Negative (Negative); *BARBITURATES SCREEN URINE Negative (Negative); *BENZODIAZEPINES SCREEN URINE Negative (Negative); Cannabinoids THC Negative (Negative); Cocaine Screen,Urine Negative (Negative); METHADONE URINE SCREEN Negative (Negative); OPIATES URINE SCREEN Negative (Negative)
[2019-11-07 14:24] LABS: Tricyclic Antidepressants Negative (Negative)
[2019-11-08 12:47] LABS: Chlamydia Result Negative (Negative); GC Result Negative (Negative)
[2019-11-12 16:17] LABS: Buprenorphine Negative
== END 2019-11-07 13:36 ==
LOC: LBN 13:16
PROVIDERS: PCP Family Medicine; Visit Provider Advanced Practice Midwife
DX: Z34.91 Encounter for supervision of normal pregnancy, unspecified, first trimester (principal); Z11.3 Encounter for screening for infections with a predominantly sexual mode of transmission; Z12.4 Encounter for screening for malignant neoplasm of cervix
CPT/HCPCS: 80307; 87491; 87591; 88142; 87086

== ENCOUNTER 2019-12-06 14:07 | Outpatient (REF) | payer MEDICAID, SELFPAY ==
[2019-12-06 16:05] LABS: Abs Immature Grans 0.01 k/cumm (0.0-0.09); Absolute Basophil Count 0.01 k/cumm (0.0-0.2); Absolute Eosinophil Count 0.12 k/cumm (0.0-0.7); Absolute Lymphocyte Count 1.78 k/cumm (1.2-3.4); Absolute Monocyte Count 0.46 k/cumm (0.11-0.7); Basophils % 0.1; Eosinophils % 1.5; HCT 39.6 % (36.0-46.0); HGB 13.5 g/dL (12.0-15.5); Immature Grans % 0.1 %; Mean Corp. HGB Concentration 34.1 g/dL (32.0-36.0); Mean Corpuscular Hemoglobin 28.2 pg (27.0-33.0); Mean Corpuscular Volume 82.8 fL (80-95); Mean Platelet Volume 12.9 fL (8.0-11.0); Monocytes % 5.7; Neutrophils % 70.6; Platelet Count 181 x1000/uL (130-400); RBC 4.78 m/cumm (4.00-5.20); White Blood Cell Count 8.08 k/cumm (4.4-10.8)
[2019-12-06 16:16] LABS: ALT 20 U/L (14-59); AST 14 U/L (15-37); Albumin 3.5 g/dL (3.4-5.0); Alkaline Phosphatase 40 U/L (46-116); Anion Gap 11.8 mmol/L (3-11); BUN 9 mg/dL (7-18); Bilirubin, Total 0.4 mg/dL (0.2-1.0); CO2 25.2 mmol/L (21.0-32.0); CREATININE 0.58 mg/dL (0.55-1.02); Calcium 9.5 mg/dL (8.5-10.1); Chloride 100 mmol/L (98-107); Glucose 152 mg/dL (74-106); Potassium 4.1 mmol/L (3.5-5.1); Sodium 137 mmol/L (136-145); Total Protein 7.2 g/dL (6.4-8.2)
[2019-12-06 16:23] LABS: Hemoglobin A1C 8.4 % (3.8-5.6)
[2019-12-06 16:24] LABS: TSH (W/Ref FT4) 1.85 uIU/mL (0.36-3.74)
[2019-12-09 09:32] LABS: Hepatitis B Surface Ag Negative (Negative)
[2019-12-09 10:28] LABS: HIV-1/2 Ag & Ab Screen Negative (Negative); Hepatitis C Ab w Rflx HCV PCR Negative (Negative)
[2019-12-10 10:02] LABS: Syphilis Total Ab w/Reflex Nonreactive (Nonreactive)
[2019-12-10 11:16] LABS: Rubella IgG Ab (UVM) Positive (See Note); Varicella IgG Antibody Positive (See Note)
== END 2019-12-06 14:27 ==
LOC: LBN 14:07
PROVIDERS: PCP Family Medicine; Visit Provider Advanced Practice Midwife
DX: O24.111 Pre-existing type 2 diabetes mellitus, in pregnancy, first trimester (principal)
CPT/HCPCS: 80053; 86787; 86803; 86850; 86900; 86901; 87340; 87389; 83036; 84443; 85025; 86762; 86780

== ENCOUNTER 2020-02-13 13:39 | Outpatient (CLI) | payer MEDICAID, SELFPAY ==
--- NOTE | 2020-02-13 13:00 | NS.NUTBLAN_ITS ---
Met with Lynn today in [facility]. Received referral for diet management with GDM. Lynn is 35 yo female that is 24 weeks . She reports that after second child, she continued to have diabetes that required insulin. Current meds: 50 units levemir BID, 30 u novolog with meals. She reports her BS are wnl, but will not provide blood sugar log or give specific values. Lynn did not want to discuss her GDM or what meals she usually eats. Previous pregnancies included GDM, preeclampsia with > 12 lbs. She has Hx of PCOS and obesity. Prepreg weight 240 lbs, up 30 lbs. Intervention: Mobile Ui/Ux Designer attempted to engage Lynn in conversation about GDM, meal selection, weight management but she did not want to participate. Mobile Ui/Ux Designer followed up with MD (Harpal Ding) regarding reluctance of Lynn to be forthcoming about her diet/blood sugars. Plan: will follow and be availble prn.
== END 2020-02-13 13:59 ==
PROVIDERS: PCP Family Medicine; Visit Provider Dietitian, Registered
DX: O24.414 Gestational diabetes mellitus in pregnancy, insulin controlled (principal); Z79.4 Long term (current) use of insulin; Z71.3 Dietary counseling and surveillance
CPT/HCPCS: 97802

== ENCOUNTER 2020-03-17 00:56 | Outpatient (CLI) | payer MEDICAID, SELFPAY ==
--- NOTE | 2020-03-17 06:45 | DI.US_ITS ---
EXAM: US OB ENRIQUE WEIGHT CLINICAL HISTORY: Diabetes in ,Z34.90. TECHNIQUE: Transabdominal obstetrical ultrasound performed. COMPARISON: US US OB 1ST TRIMESTER from 10/22/2019 FINDINGS:: Number of fetuses: One. position: Breech. Placental location: Anterior. No evidence of previa. BIOMETRIC DATA: BPD: 74 mm = 29+ 4 weeks HC: 275mm = 30+ 0 weeks AC: 253 mm = 29+ 3 weeks FL: 56 mm = 29+ 3 weeks EFW: 1408 Gms = 98% Composite Age: 29+ 4 Weeks EDC: 29 May 2020 Heart Rate: 150 BPM Amniotic fluid index: 20.2 cm. Amount of fluid is at the upper normal range. IMPRESSION: size and weight are measuring large for dates. DATA REPOSITORY:
== END 2020-03-17 01:16 ==
PROVIDERS: PCP Family Medicine; Visit Provider Obstetrics & Gynecology
DX: Z34.91 Encounter for supervision of normal pregnancy, unspecified, first trimester (principal); O36.61X0 Maternal care for excessive fetal growth, first trimester, not applicable or unspecified; O24.311 Unspecified pre-existing diabetes mellitus in pregnancy, first trimester; E11.9 Type 2 diabetes mellitus without complications
CPT/HCPCS: 76816

== ENCOUNTER 2020-03-22 11:26 | Outpatient (CLI) | payer MEDICAID, SELFPAY ==
[2020-03-22 12:09] LABS: Bilirubin Small (Negative); Blood Negative (Negative); Clarity Clear (Clear); Glucose Negative (Negative); Ketones Negative (Negative); Leukocyte Esterase Negative (Negative); Nitrite Negative (Negative); Specific Gravity 1.025 (1.005-1.025); Urobilinogen 0.2 EU/dL (Up TO 0.2); pH 6.5 (5-8)
[2020-03-22 12:21] LABS: RBC Negative HPF (0-2); WBC 0-2 HPF (0-5)
[2020-03-22 12:22] LABS: Bacteria Few HPF (Negative); C & S Indicated? No; Crystals Negative HPF (Negative); Epithelial Cells Many HPF (Negative); Mucus Moderate (Negative)
== END 2020-03-22 11:46 ==
PROVIDERS: PCP Family Medicine; Visit Provider Obstetrics & Gynecology
DX: O60.02 Preterm labor without delivery, second trimester (principal); O24.113 Pre-existing type 2 diabetes mellitus, in pregnancy, third trimester; Z3A.28 28 weeks gestation of pregnancy
CPT/HCPCS: 59025; 81003; 81015

== ENCOUNTER 2020-03-24 02:01 | Outpatient (CLI) | payer MEDICAID, SELFPAY ==
[2020-03-24 15:10] LABS: HCT 36.8 % (36.0-46.0); HGB 12.1 g/dL (11.2-15.7); MCH 28.9 pg (27.0-33.0); MCHC 32.9 % (32.0-36.0); MCV 87.8 fL (80-95); MPV 12.4 fL (8.0-11.0); Platelet Count 157 10^3/uL (130-400); RBC 4.19 10^6/uL (3.93-5.22); RDW 12.8 % (11.7-14.6); RDW-SD 40.4 fL; WBC 9.49 10^3/uL (4.4-10.8)
[2020-03-25 10:14] LABS: Hemoglobin A1C 6.8 % (3.8-5.6)
== END 2020-03-24 02:21 ==
PROVIDERS: PCP Family Medicine; Visit Provider Obstetrics & Gynecology Gynecology
DX: Z67.91 Unspecified blood type, Rh negative (principal); E11.9 Type 2 diabetes mellitus without complications; O26.893 Other specified pregnancy related conditions, third trimester
CPT/HCPCS: 36415; 85027; 86850; 86900; 86901; 90384; 83036

== ENCOUNTER 2020-04-11 15:00 | Observation (INO) | payer MEDICAID, SELFPAY | END 2020-04-11 16:35 | disposition home or self-care (01) | LOC: OBS 15:16 | PROVIDERS: Admitting Provider Obstetrics & Gynecology; PCP Family Medicine; Visit Provider Obstetrics & Gynecology | DX: O60.03 Preterm labor without delivery, third trimester (principal); Z3A.31 31 weeks gestation of pregnancy | CPT/HCPCS: G0378 ==

== ENCOUNTER 2020-04-30 02:28 | Outpatient (CLI) | payer MEDICAID, SELFPAY ==
--- NOTE | 2020-04-30 06:45 | DI.US_ITS ---
EXAM: US OB ENRIQUE WEIGHT CLINICAL HISTORY: Growth and ENRIQUE,HIGH RISK,DIABETES,OO9.93. TECHNIQUE: Transabdominal obstetrical ultrasound performed. COMPARISON: US US OB ENRIQUE WEIGHT from 03/17/2020 US US OB ENRIQUE WEIGHT from 03/17/2020 FINDINGS:: Number of fetuses: One. position: Transverse with the head toward the maternal right. Placental location: anterior. No evidence of previa. BIOMETRIC DATA: BPD: 92mm = 37+ 3 weeks HC: 330mm = 37+ 4 weeks AC: 334mm = 37+ 2 weeks FL: 69 mm = 35+ 6 weeks EFW: 3099 Gms = above the 99th % Composite Age: 37+ 0 weeks EDC: 21 May 2020 Heart Rate: 155BPM Amniotic fluid index: 26.1 cm. Polyhydramnios. IMPRESSION: size and weight are above the expected range. Polyhydramnios. DATA REPOSITORY:
== END 2020-04-30 02:48 ==
PROVIDERS: PCP Family Medicine; Visit Provider Obstetrics & Gynecology
DX: O09.893 Supervision of other high risk pregnancies, third trimester (principal); E11.9 Type 2 diabetes mellitus without complications; O40.3XX0 Polyhydramnios, third trimester, not applicable or unspecified
CPT/HCPCS: 76816

== ENCOUNTER 2020-05-05 08:04 | Outpatient (CLI) | payer MEDICAID, SELFPAY ==
[2020-05-05 10:06] VITALS: BP 114/62; PULSE 97; TEMP 37
--- NOTE | 2020-05-05 13:41 | W.OBNST ---
Date of service: 05/05/20 Time of Service: 13:41 NST Evaluation Reason for NST Reasons for Nonstress Test: GDM- PO MEDICATION Gestational Age Gestational Age in Weeks and Days: 34 Weeks and 3Days Test and Monitor Explained Test/Monitor Explained: Test Explained, Monitor Explained and Patient Verbalized Understanding Vital Signs Blood Pressure: 114/62 Pulse: 97 Temperature: 98.6 F NST Information Date on Monitor: 05/05/20 Time on Monitor: 10:16 Date off Monitor: 05/05/20 Time off Monitor: 11:00 Total Time on Monitor: 44 NST Interventions: PO Hydration NST Evaluation Patient States Movement: Present FHR Baseline: 160 Variability: Moderate 6-25 bpm Accelerations: 15x15 Decelerations: None NST Results: Reactive Note NST Note Note: Category 1 strip NST Reviewed and Verified by: Gloria Ding
[2020-05-05 13:42] VITALS: BP 114/62; PULSE 97; TEMP 37
== END 2020-05-05 11:00 | disposition home or self-care (01) ==
LOC: BCD 08:08 → OBS 09:52
PROVIDERS: PCP Family Medicine; Visit Provider Obstetrics & Gynecology
DX: O24.415 Gestational diabetes mellitus in pregnancy, controlled by oral hypoglycemic drugs (principal); Z3A.34 34 weeks gestation of pregnancy
CPT/HCPCS: 59025

== ENCOUNTER 2020-05-08 02:58 | Outpatient (CLI) | payer MEDICAID, SELFPAY ==
[2020-05-08 11:06] LABS: Hemoglobin A1C 6.9 % (<5.7)
== END 2020-05-08 03:18 ==
PROVIDERS: PCP Family Medicine; Visit Provider Obstetrics & Gynecology
DX: O24.113 Pre-existing type 2 diabetes mellitus, in pregnancy, third trimester (principal); E11.9 Type 2 diabetes mellitus without complications
CPT/HCPCS: 36415; 83036

== ENCOUNTER 2020-05-08 07:16 | Outpatient (CLI) | payer MEDICAID, SELFPAY ==
[2020-05-08 10:52] VITALS: BP 108/72; PULSE 78; TEMP 36.7
[2020-05-08 10:56] VITALS: BP 119/73; PULSE 96
--- NOTE | 2020-05-08 11:15 | DI.US_ITS ---
EXAM: US OB BIOPHYSICAL PROFILE CLINICAL HISTORY: type 2 diabetes, inadequate nst TECHNIQUE: Ultrasound performed using standard protocol. COMPARISON: US US OB ENRIQUE WEIGHT from 04/30/2020 FINDINGS: Ob ultrasound was performed utilizing limited 3rd trimester protocol with biophysical profile. [facility] ysical profile score is 8/8. There is visually mild polyhydramnios and the ENRIQUE is 27. heart rate is noted at 133 and 155 beats per minute at different points in the examination. Placenta is anterior with no placenta previa. Fetus is in transverse lie. IMPRESSION: DATA REPOSITORY:
== END 2020-05-08 13:05 | disposition home or self-care (01) ==
LOC: BCD 08:46 → OBS 10:28
PROVIDERS: PCP Family Medicine; Visit Provider Obstetrics & Gynecology
DX: O24.113 Pre-existing type 2 diabetes mellitus, in pregnancy, third trimester (principal); Z3A.34 34 weeks gestation of pregnancy
CPT/HCPCS: 76815; 59025; 76819

== ENCOUNTER 2020-05-12 07:39 | Outpatient (CLI) | payer MEDICAID, SELFPAY ==
[2020-05-12 10:02] VITALS: BP 131/70; PULSE 98; TEMP 36.8
[2020-05-12 10:10] VITALS: BP 131/70; PULSE 98
--- NOTE | 2020-05-12 11:38 | W.OBNST ---
Date of service: 05/12/20 Time of Service: 11:38 NST Evaluation Reason for NST Reasons for Nonstress Test: GDM-INSULIN Gestational Age Gestational Age in Weeks and Days: 35 Weeks and 3Days Test and Monitor Explained Test/Monitor Explained: Test Explained Vital Signs Blood Pressure: 131/70 Pulse: 98 Temperature: 98.2 F NST Information Date on Monitor: 05/12/20 Time on Monitor: 10:30 Date off Monitor: 05/12/20 NST Interventions: PO Hydration and Other NST Evaluation Patient States Movement: Present FHR Baseline: 150 Variability: Moderate 6-25 bpm Accelerations: 10x10 NST Results: Questionable Note NST Note Note: Patient was seen in the center today for nonstress testing. She had nonreactive nonstress test however good variability. Accelerations were not not appropriate at this exam. She did have uterine irritability with cervical exam that is closed. Group B strep was obtained. She did have a biophysical profile in diagnostic imaging which is an 8 out of 8. She will be seen back on the center on Monday for nonstress test NST Reviewed and Verified by: Gloria Ding
[2020-05-12 11:39] VITALS: BP 131/70; PULSE 98; TEMP 36.8
== END 2020-05-12 11:00 | disposition home or self-care (01) ==
LOC: BCD 07:42 → OBS 07:46
PROVIDERS: PCP Family Medicine; Visit Provider Obstetrics & Gynecology
DX: O24.414 Gestational diabetes mellitus in pregnancy, insulin controlled (principal); Z79.4 Long term (current) use of insulin; Z3A.35 35 weeks gestation of pregnancy
CPT/HCPCS: 59025; 87081

== ENCOUNTER 2020-05-12 12:08 | Outpatient (CLI) | payer MEDICAID, SELFPAY ==
--- NOTE | 2020-05-12 10:45 | DI.US_ITS ---
EXAM: US OB BIOPHYSICAL PROFILE CLINICAL HISTORY: nonreactive NST, high-risk in 3rd trimester, O09.93, h/o C-secti TECHNIQUE: Ultrasound biophysical profile performed using standard protocol. COMPARISON: US US OB BIOPHYSICAL PROFILE from 05/08/2020 FINDINGS: ULTRASOUND BIOPHYSICAL PROFILE: Number of fetuses: One. position: Transverse with the head toward the maternal left. heart rate: 150 bpm. Placental grade: 2 Placental location: anterior . No evidence of previa. Amniotic fluid index:29.7 cm. Single deepest pocket is 12.3 cm. BIOPHYSICAL PROFILE SCORE: breathin out of 2 movement: 2 out of 2 tone: 2 out of 2 Amniotic fluid: 2 out of 2 Overall biophysical profile score: Out of 8. IMPRESSION: Single live intrauterine gestation. Polyhydramnios. Biophysical profile 8 out of 8. DATA REPOSITORY:
== END 2020-05-12 12:28 ==
PROVIDERS: PCP Family Medicine; Visit Provider Obstetrics & Gynecology
DX: O09.93 Supervision of high risk pregnancy, unspecified, third trimester (principal); O40.3XX0 Polyhydramnios, third trimester, not applicable or unspecified
CPT/HCPCS: 76815; 76819

== ENCOUNTER 2020-05-15 09:04 | Outpatient (CLI) | payer MEDICAID, SELFPAY ==
[2020-05-15 10:14] VITALS: TEMP 36.8
[2020-05-15 11:13] VITALS: BP 99/55; PULSE 90
--- NOTE | 2020-05-15 12:11 | W.OBNST ---
Date of service: 05/15/20 Time of Service: 12:17 NST Evaluation Reason for NST Reasons for Nonstress Test: GDM-INSULIN Gestational Age Gestational Age in Weeks and Days: 35 Weeks and 6Days Test and Monitor Explained Test/Monitor Explained: Test Explained, Monitor Explained and Patient Verbalized Understanding Vital Signs Temperature: 98.2 F NST Information Date on Monitor: 05/15/20 Time on Monitor: 10:29 Date off Monitor: 05/15/20 Time off Monitor: 11:24 Total Time on Monitor: 55 NST Interventions: PO Hydration and Reposition Patient NST Evaluation Patient States Movement: Present Variability: Moderate 6-25 bpm Accelerations: 10x10 Decelerations: None NST Results: Reactive Note Biophysical Profile (Performed at bedside by myself.) Results of Biophysical Profile: ENRIQUE 21.25, gross and fine movement. breathing motion present. Pt moving constantly during the BPP. , ENRIQUE and Presentation (vtx) NST Note Note: Fetus moving durig NST so adequate tracing not caputured. Pt did not perform morning CBG. Current CBG 165mg/dl. BP normal. Pt continues with mild headache and diziness. Will have her return to on 05/19/20 for repeat NST. NST Reviewed and Verified by: Pat Parham
[2020-05-15 12:17] VITALS: TEMP 36.8
== END 2020-05-15 11:30 | disposition home or self-care (01) ==
LOC: BCD 09:56 → OBS 10:13
PROVIDERS: PCP Family Medicine; Visit Provider Obstetrics & Gynecology Gynecology
DX: O24.414 Gestational diabetes mellitus in pregnancy, insulin controlled (principal); Z79.4 Long term (current) use of insulin; Z3A.35 35 weeks gestation of pregnancy
CPT/HCPCS: 59025; 76815

== ENCOUNTER 2020-05-19 10:27 | Outpatient (CLI) | payer MEDICAID, SELFPAY ==
[2020-05-19 10:31] VITALS: BP 122/69; PULSE 98; TEMP 36.7
[2020-06-08 09:01] VITALS: BP 122/69; PULSE 98; TEMP 36.7
--- NOTE | 2020-06-08 09:01 | W.OBNST ---
Date of service: 05/19/20 Time of Service: 09:01 NST Evaluation Reason for NST Reasons for Nonstress Test: GDM-INSULIN Reason for NST Other: and LGA Gestational Age Gestational Age in Weeks and Days: 36 Weeks and 2Days Test and Monitor Explained Test/Monitor Explained: Test Explained, Monitor Explained and Patient Verbalized Understanding Vital Signs Blood Pressure: 122/69 Pulse: 98 Temperature: 98.1 F Urine Results Urine Protein: Positive Urine Ketones: Positive Urine Glucose: Negative Urine Blood: Negative NST Information Date on Monitor: 05/19/20 Time on Monitor: 10:16 Date off Monitor: 05/19/20 Time off Monitor: 12:23 Total Time on Monitor: 127 NST Interventions: PO Hydration Contraction Frequency: occasional NST Evaluation Patient States Movement: Present FHR Baseline: 150 Variability: Moderate 6-25 bpm Accelerations: None Decelerations: None NST Results: Non-Reactive NST Results Other: Pt sent for BPP Note NST Note NST Reviewed and Verified by: Brian Maurice
== END 2020-05-19 12:30 | disposition home or self-care (01) ==
LOC: BCD 10:29 → OBS 10:33
PROVIDERS: PCP Family Medicine; Visit Provider Obstetrics & Gynecology
DX: O24.414 Gestational diabetes mellitus in pregnancy, insulin controlled (principal); Z79.4 Long term (current) use of insulin; O36.63X0 Maternal care for excessive fetal growth, third trimester, not applicable or unspecified; Z3A.36 36 weeks gestation of pregnancy
CPT/HCPCS: 59025

== ENCOUNTER 2020-05-19 10:29 | Outpatient (CLI) | payer MEDICAID, SELFPAY ==
--- NOTE | 2020-05-19 11:00 | DI.US_ITS ---
EXAM: US OB BIOPHYSICAL PROFILE CLINICAL HISTORY: nonreactive NST, O09.93 SUPERVISION HIGH RISK , WET READ TECHNIQUE: Ultrasound biophysical profile performed using standard protocol. COMPARISON: US US OB ENRIQUE WEIGHT from 03/17/2020 US US OB ENRIQUE WEIGHT from 04/30/2020 US US OB BIOPHYSICAL PROFILE from 05/08/2020 US US OB BIOPHYSICAL PROFILE from 05/12/2020 FINDINGS: ULTRASOUND BIOPHYSICAL PROFILE: Number of fetuses: One. position: Transverse with the head toward the maternal left heart rate: 169 bpm. Placental grade: 2 Placental location: Anterior. No evidence of previa. Amniotic fluid index: 40.7 cm. Single deepest pocket is 16.12 cm. BIOPHYSICAL PROFILE SCORE: breathin out of 2 Body flexion/extension: 2 out of 2 Extremity flexion/extension: 0 out of 2 Amniotic fluid: 2 out of 2 Overall biophysical profile score: 4 out of 8. IMPRESSION: Polyhydramnios with an ENRIQUE of 40.7 Biophysical profile 4 out of 8. DATA REPOSITORY:
== END 2020-05-19 10:49 ==
PROVIDERS: PCP Family Medicine; Visit Provider Obstetrics & Gynecology
DX: O40.3XX0 Polyhydramnios, third trimester, not applicable or unspecified (principal); O09.93 Supervision of high risk pregnancy, unspecified, third trimester
CPT/HCPCS: 76815; 76819

== ENCOUNTER 2020-05-19 14:20 | Observation (INO) | payer MEDICAID, SELFPAY ==
[2020-05-19 13:48] VITALS: BP 139/77; PULSE 103; RESP 18; TEMP 36.7
--- NOTE | 2020-05-19 14:21 | W.PM.OBHPL1 ---
Date of service: 05/19/20 Time of Service: 14:22 Assessment and Plan Assessment and plan (1) High-risk in third trimester: Status: Acute Assessment and plan: Patient is a 35-year-old 4 para 2-0-0-2 at 36 weeks and 2 days today. [facility] and management of her diabetes. She is known to have macrosomic infant with polyhydramnios. Today for her routine surveillance she had nonreactive nonstress test with a biophysical of a total of 4 out of 10. She received 2 points for amniotic fluid index which is markedly elevated at 40 and 2 for gross movement. She had no tone, breathing movements, and had a nonreactive nonstress test. Due to this recommendation would be for delivery. She states baby has been active but less so than usual. She is a scheduled repeat section with bilateral salpingectomy for contraception. Due to the fact that she is at 36-week gestation with an abnormal surveillance and risk for baby needing intensive care unit, patient will be transferred to [facility] to the service of Dr. Vergara today. This was discussed with Dr. Vergara earlier. Transportation arrangements will be made via ambulance. Patient does understand that there is inherent risk in delivery early, whether that be here or at [facility] and the inherent risk of transfer. Informed consent was obtained. (2) Rh negative state in antepartum period: Status: Acute (3) Diabetes mellitus: Status: Chronic (4) History of low vertical section: Status: Acute (5) History of severe pre-eclampsia: Status: Acute (6) Type II diabetes mellitus with complication, uncontrolled: Status: Acute (7) Polyhydramnios: Status: Acute (8) NST (non-stress test) nonreactive: Status: Acute OB-HPI Labor/Delivery History of Present Illness Reason for Visit: Chief Complaint: Other ( testing, nonreactive NST). ZEN Calculator Estimated Delivery Date Method Current WG Current Estimate 06/14/20 Ultrasound #1 36w 2d Other Estimates 06/08/20 LMP (Certain) 37w 1d Comments: Patient is a 35-year-old female 4 para 2-0-1-2 who is had care in our office. She is today at 36 weeks and 2 days. She was here for surveillance with nonstress test and routine OB visit due to gestational diabetes and polyhydramnios. She had nonreactive nonstress test with heart rate in the 150s moderate variability but no accelerations. She was sent for biophysical profile today which confirmed a biophysical of 4 out of 10 with 2 for fluid and 2 for gross movement. No tone, no breathing, nonreactive nonstress test. As of note, her polyhydramnios has significantly increased in the past week from an ENRIQUE of 29-40 today. Patient states that subjectively baby is moving but less than average. She reports that her sugars are normal. History of Present Expected Delivery Route/Plan Repeat C/S, MD [facility], Pt desires permanent sterilization at that time. FOB: Casey Harvey Specific Issues/Plan 1. IDDM. 03/17/20 Levemir dose: 65 uniits BID. Novolog 45units ac. 2. echo and morpholgy u/s @ [facility]. 3. Q trimester growth u/s beginning @ 28w. 4. HgbA1c at 28w visit. 5. Rh neg, plan RhoGam @ 28 wks 6. Elevated BMI 40, 7. Previous , desires repeat. Wants sterilization at time of repeat c/s. 2019 8. History of severe pre-eclampsia, to start low dose ASA @ 12 wks 9. Smoker 10. Depression/Bipolar Disorder 11. [place] obtained 12/06/19. Did not have maternal AFP. Known CF negative. Review of Systems Constitutional Constitutional: Reports difficulty sleeping Comments: Discomforts of Eyes Eyes: Reports system reviewed and no additional complaints, except as documented Cardiovascular Cardiovascular: Reports system reviewed and no additional complaints, except as documented Respiratory Respiratory: Reports system reviewed and no additional complaints, except as documented Gastrointestinal Gastrointestinal: Reports system reviewed and no additional complaints, except as documented Genitourinary Comments: Baby moving but subjectively less. Occasional contractions. Musculoskeletal Musculoskeletal: Reports system reviewed and no additional complaints, except as documented Neurologic Neurologic: Reports system reviewed and no additional complaints, except as documented Endocrine Comments: Patient states her sugars are normal, but fails to show us her log today [facility] Medical History Abnormal amniotic fluid (11/04/13) Anemia, unspecified (07/02/15) Anxiety Longstanding. Was in counseling and had taken Paxil in past with +/- results. 2003 had psych hospitalization. Is applying for disability because of anxiety. Bilateral lower extremity edema BMI 38.0-38.9,adult Candidiasis of skin 2013 during beneath axilla Carpal tunnel syndrome Diabetes mellitus Diabetes mellitus Dx 2009. Began Lantus 2012 with Novalog added. 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 Has not followed up with optomotrist Encounter for management and injection of depo-Provera (03/14/18) High risk due to assisted reproductive technology (10/08/13) High-risk in third trimester Iron deficiency anemia Large for dates fetus (11/04/13) Lipids abnormal Morbid obesity 02/2018 BMI 48 kg/m2 Morbid obesity BMI-53 Rh neg trauma 2005 laceration Uses 3-month hormonal injection as primary control method (01/25/17) Vaginal leukorrhea (06/25/13) Surgical History section (06/22/16) 01/02/14 PC/S. EGD - IV Sedation (~08/2011) DR. CANALES Endoscopic Carpal Tunnel release History of low vertical section (02/17/16) at 36 weeks for failed induction due to preeclampsia Left wrist 02/2013 Sigmoidoscopy Family History Mother Substance abuse Diabetes Depression Father Essential hypertension Hyperlipidemia Brother Substance abuse Depression Grandfather Diabetes Heart disease Hyperlipidemia Stroke Grandmother Personal history of malignant neoplasm LUNG Grandmother Diabetes Heart disease Stroke Sister Diabetes Brother Substance abuse Diabetes Depression Paternal Grandmother Heart disease Social History Smoking/Tobacco Use Status: Former Tobacco Use Alcohol Intake: never Drug use: Occasionally Substance use type: marijuana Adopted: Yes Number of Children: 3 current occupation: stay at home mom Seatbelt use: always Do you feel safe at home: Yes Do you feel safe in your relationship?: Yes History History 4 Para 2 Hx # Term Pregnancies 1 Multiple births 0 Hx # Pregnancies 1 Ectopic pregnancies 0 AB induced 0 Hx Number of Living Children 2 AB spontaneous 1 Past Pregnancies Del. Date GA/Weeks # Outcome Route Wgt Sex Labor Lgth Anesthesia Location Prov Complic 12/10/08 6 01/02/14 36 No Successful 9 lb 11 oz Female dx of pre-eclampsia and low blood levels yet pt not [facility] No Successful 12 lb 1 oz Male bjorn c/[facility] Delivery Date: 12/10/08 sab resolved at home w/o need for d&c. MALI BOJORQUEZ Delivery Date: 01/02/14 low blood count probably assoc. with pre-e, yet w/o specifics. MALI BOJORQUEZ Delivery Date: 06/22/16 w/o c/o. MALI BOJORQUEZ Meds Home Medications and Allergies Home Medications Medication Instructions Recorded Confirmed Type albuterol sulfate [ProAir HFA] 2 puff INHALATION Q4H PRN #1 07/15/16 05/19/20 History inhaler Rosuvastatin Calcium 40 mg PO DAILY #90 tab.chew 03/21/18 05/17/19 Clinic prenat.vits,karen,ktn-nwsl-maxvo 1 tab PO DAILY 10/17/19 05/19/20 History omeprazole 40 mg capsule,delayed 40 mg PO DAILY #60 cap 12/31/19 05/19/20 Rx release aspirin 81 mg chewable tablet 81 mg PO DAILY 03/17/20 05/19/20 History triamcinolone acetonide 0.5 % 1 applic TP TID #15 gm 03/17/20 05/19/20 Rx topical cream insulin aspart U-100 100 unit/mL 45 unit SC TID #15 ml 04/16/20 05/19/20 Rx (3 mL) subcutaneous pen insulin detemir U-100 100 unit/mL 65 unit SC BID #15 ml 04/16/20 05/19/20 Rx (3 mL) subcutaneous pen blood sugar diagnostic #100 each 04/30/20 05/19/20 Rx pen needle, diabetic 30 gauge x #100 each 04/30/20 05/19/20 Rx 12/13 Allergies Allergy/AdvReac Type Severity Reaction Status Date / Time Latex, Natural Rubber Allergy Mild Skin Rash Verified 05/19/20 13:35 metformin AdvReac Unknown DIARRHEA Verified 05/19/20 13:35 Exam Constitutional Constitutional: no acute distress Detailed Labor and Delivery Exam Cervantes Score: Cervical Points Exam 0 1 2 3 Dilation Closed 1-2cm 3-4 cm 5-6cm Effacement 0-30% 40-50% 60-70% 80% Consistency Firm Medium Soft Station -3 -2 -1,0 +1,+2 Position Posterior Mid Anterior Fetus A Heart Rate Baseline: 150 Monitor Accelerations: Absent Monitor Decelerations: None Variability: Moderate (6-25 BPM) Presentation: Transverse Lie HEENT Exam HEENT Exam: Normal Neck Exam Neck Exam: Normal Respiratory Exam Respiratory Exam: Normal Cardiovascular Exam Cardiovascular Exam: Normal Abdominal Exam Abdominal Exam: Abnormal (Gravid uterus, fundal height 46 cm. Soft, nontender, irregular mild contractions) Detailed Extremities Exam Extremities: Absent cyanosis, clubbing and edema Risk Assessment Risk for Shoulder Dystocia Historical/Initial OB: POSITIVE FOR: Pre- BMI>30 and Previous Macrosomia (12.1 lbs @ 37 weeks and 9lbs 11 oz @ 36 weeks.); NEGATIVE FOR: Pelvic Abnormality or Previous Shoulder Dystocia Increased Risk?: Yes Counseling: pt planning on repeat c/s Date/Initial: iob 11/07/19 al Risk for Pre-Eclampsia Daily Dose ASA Indicated: Yes (currently taking low dose asa, as recommended by pcp after last . ) Date Initiated/Initials: 11/07/19 al Yes, if one or more: POSTIVE FOR: Hx Pre-E/Gest HTN (w/ 1st ) and Pre-gestational DM (tx w/ insulin); NEGATIVE FOR: Chronic HTN, Multiple Gestation, Renal Disease, Systemic Lupus or APA Syndrome Yes, if 2 or more: POSITIVE FOR: Age>= 35 yrs and BMI>30; NEGATIVE FOR: Nulliparity, >10yr btwn pregnancies, ethinicty, Mother/Sister w/ Pre-E or Previous IUGR Risk for Post- Hemorrhage Initial: NEGATIVE FOR: Multiple Gestation, Previous PPH, Known Clotting Deficiency, Grand Multiparity or Anticoagulation At Risk?: No (@ iob low risk al) Risks Reviewed Risks Reviewed Upon Admission: Yes
[2020-05-19] MEDS: Scopolamine 1 MG/3 DAYS PATCH TD (15:12)
== END 2020-05-19 15:12 | disposition short-term general hospital (02) ==
LOC: OBS 14:25
PROVIDERS: Admitting Provider Obstetrics & Gynecology; PCP Family Medicine; Visit Provider Obstetrics & Gynecology
DX: O40.3XX0 Polyhydramnios, third trimester, not applicable or unspecified (principal); Z3A.36 36 weeks gestation of pregnancy; O36.63X0 Maternal care for excessive fetal growth, third trimester, not applicable or unspecified; O36.8930 Maternal care for other specified fetal problems, third trimester, not applicable or unspecified; O34.211 Maternal care for low transverse scar from previous cesarean delivery; O26.893 Other specified pregnancy related conditions, third trimester; Z67.91 Unspecified blood type, Rh negative; O24.113 Pre-existing type 2 diabetes mellitus, in pregnancy, third trimester; E11.65 Type 2 diabetes mellitus with hyperglycemia; Z79.4 Long term (current) use of insulin; O99.333 Smoking (tobacco) complicating pregnancy, third trimester; F17.210 Nicotine dependence, cigarettes, uncomplicated; O99.213 Obesity complicating pregnancy, third trimester; E66.01 Morbid (severe) obesity due to excess calories; O09.523 Supervision of elderly multigravida, third trimester
CPT/HCPCS: 59025; G0378

== ENCOUNTER 2020-09-04 16:22 | Emergency (ER) | payer OTHER, SELFPAY ==
[2020-09-04 16:29] VITALS: BP 145/82; PULSE 99; RESP 16; TEMP 36.4; O2SAT 96
--- NOTE | 2020-09-04 16:43 | W.ED.GENAD ---
Discharge Plan Disposition Patient Disposition: HOME Condition: Stable Discharge Details Clinical Impression: Laceration of left index finger Primary Care Provider: Abbey Musa ED Provider: Ricardo Cooper Home Meds and New Rx's Prescriptions: Continued (DME) pen needle, diabetic [AboutTime Pen Needle] 30 gauge x 5/16 needle See Rx Instructions .ROUTE .MEDSUPPLY Qty: 100 RF: 5 amitriptyline 10 mg tablet 10 mg PO QHS Qty: 30 RF: 1 rosuvastatin [Crestor] 40 mg tablet 40 mg PO DAILY Qty: 90 RF: 3 prenat.vits,karen,obp-tbrl-xquny Tablet 1 tab PO DAILY RF: 0 aspirin 81 mg tablet,chewable 81 mg PO DAILY RF: 0 Levemir FlexTouch U-100 Insuln 100 unit/mL (3 mL) insulin pen 65 unit SC BID Qty: 15 RF: 5 insulin aspart U-100 [Novolog Flexpen U-100 Insulin] 100 unit/mL (3 mL) insulin pen 45 unit SC TID Qty: 15 RF: 5 Hold Instructions: Home Medication placed on hold at Doctor's office albuterol sulfate [ProAir HFA] 8.5 GM HFA aerosol inhaler 2 puff Inhalation Q4H PRN Qty: 1 RF: 6 omeprazole 40 mg capsule,delayed release(DR/EC) 40 mg PO DAILY Qty: 60 RF: 3 (DME) OneTouch Verio test strips Strip See Rx Instructions .ROUTE .MEDSUPPLY Qty: 100 RF: 5 insulin lispro [Humalog KwikPen Insulin] 100 unit/mL insulin pen 30 unit subcut TID MDD 120 units. Qty: 15 RF: 10 Discharge Instructions Instructions: Skin Adhesive Care (ED) Additional Instructions: if you have spreading redness or yellow/white discharge from the wound return to the emergency department Medical Decision Making 35 yo female states she was at work when a knife she was using slipped and caused a laceration to the anterior distal left index finger over the fat pad. She denies falls or other injuries. She has a 1cm superficial laceration to this area with intact sensationand cap refill with normal range of motion of the finger. She doesn't want to have stitches and wound seems superficial enough where I can close with dermabond, will irrigate and try this. closed uneventfully with skin adhesive, tolerated well, will d/c and return precautions given Differential Diagnosis Differential Diagnosis: laceration, abrasion HPI General Mode of arrival: ambulatory. Date/Time Provider Initiated Documentation: 09/04/20 16:29. Limitations to Documentation: no limitations. Information obtained by: patient. History of Present Illness 35 year old F presents to the emergency department with the chief complaint of left index finger laceration, described as moderate, Patient started experiencing this hour(s) (1) and it has been constant. No relieving factors improve symptom(s), No exacerbating factors reported . Related Data Home Medications Medication Instructions Recorded Confirmed albuterol sulfate [ProAir HFA] 2 puff INHALATION Q4H PRN #1 07/15/16 08/04/20 inhaler prenat.vits,karen,[id number] 1 tab PO DAILY 10/17/19 08/04/20 omeprazole 40 mg capsule,delayed 40 mg PO DAILY #60 cap 12/31/19 08/04/20 release aspirin 81 mg chewable tablet 81 mg PO DAILY 03/17/20 08/04/20 insulin aspart U-100 100 unit/mL 45 unit SC TID #15 ml 04/16/20 08/04/20 (3 mL) subcutaneous pen insulin detemir U-100 100 unit/mL 65 unit SC BID #15 ml 04/16/20 08/04/20 (3 mL) subcutaneous pen pen needle, diabetic 30 gauge x #100 each 04/30/20 06/01/2012/13 amitriptyline 10 mg tablet 10 mg PO QHS #30 tab 08/04/20 08/04/20 rosuvastatin 40 mg tablet 40 mg PO DAILY #90 tab 08/04/20 08/04/20 blood sugar diagnostic #100 each 09/01/20 insulin lispro 100 unit/mL 30 unit SUBCUT TID #15 ml MDD 120 09/03/20 subcutaneous pen units. Previous Rx's Medication Instructions Recorded omeprazole 40 mg capsule,delayed 40 mg PO DAILY #60 cap 12/31/19 release insulin aspart U-100 100 unit/mL 45 unit SC TID #15 ml 04/16/20 (3 mL) subcutaneous pen insulin detemir U-100 100 unit/mL 65 unit SC BID #15 ml 04/16/20 (3 mL) subcutaneous pen pen needle, diabetic 30 gauge x #100 each 04/30/20 5/16 amitriptyline 10 mg tablet 10 mg PO QHS #30 tab 08/04/20 rosuvastatin 40 mg tablet 40 mg PO DAILY #90 tab 08/04/20 blood sugar diagnostic #100 each 09/01/20 insulin lispro 100 unit/mL 30 unit SUBCUT TID #15 ml MDD 120 09/03/20 subcutaneous pen units. Allergies Allergy/AdvReac Type Severity Reaction Status Date / Time Latex, Natural Rubber Allergy Mild Skin Rash Verified 09/04/20 16:35 metformin AdvReac Unknown DIARRHEA Verified 09/04/20 16:35 General Stated Complaint: Laceration JED: 4 Review of Systems All systems reviewed & are unremarkable except as noted in HPI and below Constitutional Constitutional: Denies chills, Denies fever(s) and Denies weakness Cardiovascular Cardiovascular: Denies chest pain and Denies dyspnea Respiratory Respiratory: Denies cough and Denies dyspnea Gastrointestinal Gastrointestinal: Denies abdominal pain, Denies nausea and Denies vomiting Musculoskeletal Musculoskeletal: Denies joint swelling Neurologic Neurologic: Denies weakness [facility] Medical History (Updated 09/04/20 @ 16:53 by Ricardo Cooper MD) Abnormal amniotic fluid (11/04/13) Anemia, unspecified (07/02/15) Anxiety Longstanding. Was in counseling and had taken Paxil in past with +/- results. 2004 had psych hospitalization. Is applying for disability because of anxiety. Bilateral lower extremity edema BMI 38.0-38.9,adult Candidiasis of skin 2013 during beneath axilla Carpal tunnel syndrome Diabetes mellitus Diabetes mellitus Dx 2009. Began Lantus 2012 with Novalog added. 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 Has not followed up with optomotrist Encounter for management and injection of depo-Provera (03/14/18) High risk due to assisted reproductive technology (10/08/13) High-risk in third trimester Iron deficiency anemia Large for dates fetus (11/04/13) Lipids abnormal Morbid obesity 02/2018 BMI 48 kg/m2 Morbid obesity BMI-53 NST (non-stress test) nonreactive Polyhydramnios Rh neg trauma 2004 laceration Uses 3-month hormonal injection as primary control method (01/25/17) Vaginal leukorrhea (06/25/13) Surgical History (Updated 06/01/20 @ 09:32 by Gloria Ding DO) section (06/22/16) 01/02/14 PC/S. EGD - IV Sedation (~08/2011) DR. CANALES Endoscopic Carpal Tunnel release History of low vertical section (02/17/16) at 36 weeks for failed induction due to preeclampsia Left wrist 02/2013 Sigmoidoscopy Status post repeat low transverse section Family History Mother Substance abuse Diabetes Depression Father Essential hypertension Hyperlipidemia Brother Substance abuse Depression Grandfather Diabetes Heart disease Hyperlipidemia Stroke Grandmother Personal history of malignant neoplasm LUNG Grandmother Diabetes Heart disease Stroke Sister Diabetes Brother Substance abuse Diabetes Depression Paternal Grandmother Heart disease Social History Smoking/Tobacco Use Status: Former Tobacco Use Smoking risk assessment performed?: Yes Alcohol Intake: never Drug use: Occasionally Substance use type: marijuana Adopted: Yes Number of Children: 3 current occupation: stay at home mom Seatbelt use: always Do you feel safe at home: Yes Do you feel safe in your relationship?: Yes History History 4 Para 2 Hx # Term Pregnancies 1 Multiple births 0 Hx # Pregnancies 1 Ectopic pregnancies 0 AB induced 0 Hx Number of Living Children 2 AB spontaneous 1 Past Pregnancies Del. Date GA/Weeks # Outcome Route Wgt Sex Labor Lgth Anesthesia Location Prov [facility] 12/10/08 6 01/02/14 36 No Successful 4394.176 g Female dx of pre-eclampsia and low blood levels yet pt not know what. [facility] Dr[facility] Hernandez, [facility] 06/22/16 37 No Successful 5.471 kg Male [facility] c/s [facility] Dr. Hernandez [facility] 05/19/20 37 No Successful 5.245 kg Male [facility] Delivery Date: 12/10/08 sab resolved at home w/o need for d&c. [facility] BOJORQUEZ Delivery Date: 01/02/14 low blood count probably assoc. with pre-e, yet w/o specifics. [facility] BOJORQUE[facility] Delivery Date: 06/22/16 w/o c/o. [facility] BOJORQUEZ Delivery Date: 05/19/20 No notes to display Exam Const General: no acute distress Orientation: alert HENMT Head: normal to inspection Ears: external ears normal General nose exam: external nose normal Mouth: moist mucous membranes Eyes General: appearance normal, both eyes and all related structures Neck Neck: normal visual inspection Resp Effort & Inspection: normal respiratory effort and able to speak in complete sentences Cardio Rate: regular rate Skin General skin exam: no rashes or lesions noted Neuro General: patient alert and patient oriented x3 Extrem General: full ROM and capillary refill normal Psych Mental Status: mental status grossly normal Course Vital Signs Vital signs: Vital Signs Temperature 36.4 C L 09/04/20 16:29 Pulse 99 H 09/04/20 16:29 Respiratory Rate 16 09/04/20 16:29 Blood Pressure 145/82 H 09/04/20 16:29 Pulse Oximetry 96 09/04/20 16:29 Temperature 36.4 C L 09/04/20 16:29 Temperature Source Skin 09/04/20 16:29 Pulse 99 H 09/04/20 16:29 Respiratory Rate 16 09/04/20 16:29 Respiratory Effort 09/04/20 16:41 Blood Pressure 145/82 H 09/04/20 16:29 Blood Pressure Position Sitting 09/04/20 16:29 Pulse Oximetry 96 09/04/20 16:29 Oxygen Delivery Method Room Air 09/04/20 16:29 Oxygen Flow Rate 0 09/04/20 16:29 Pain Level 7 09/04/20 16:29 Procedures Laceration Laceration 1: Site: hand Side (If applicable): left Size (cm): 1 Description: linear Pre-repair: wound explored and irrigated extensively Skin layer closed with: other (skin adhesive)
== END 2020-09-04 17:15 | disposition home or self-care (01) ==
PROVIDERS: Emergency Provider Emergency Medicine; PCP Family Medicine
DX: S61.211A Laceration without foreign body of left index finger without damage to nail, initial encounter (principal); W26.0XXA Contact with knife, initial encounter
CPT/HCPCS: 12001

== ENCOUNTER 2021-03-29 17:50 | Emergency (ER) | payer MEDICAID, SELFPAY ==
[2021-03-29 17:55] VITALS: BP 150/88; PULSE 100; RESP 18; TEMP 36.6; O2SAT 98
--- NOTE | 2021-03-29 18:26 | W.ED.GENAD ---
Discharge Plan Disposition Patient Disposition: HOME Condition: Good Discharge Details Clinical Impression: Acute neck pain Primary Care Provider: Abbey Musa ED Provider: Palmira Campos Home Meds and New Rx's Prescriptions: New orphenadrine citrate 100 mg tablet extended release 100 mg PO BID Qty: 10 RF: 0 Continued rosuvastatin [Crestor] 40 mg tablet 40 mg PO DAILY Qty: 90 RF: 3 omeprazole 40 mg capsule,delayed release(DR/EC) 40 mg PO DAILY Qty: 60 RF: 3 albuterol sulfate [ProAir HFA] 90 mcg/actuation HFA aerosol inhaler 2 puff Inhalation Q6H PRN (Reason: shortness of breath or wheezing) Qty: 8.5 RF: 3 (DME) pen needle, diabetic [AboutTime Pen Needle] 30 gauge x 5/16 needle See Rx Instructions .ROUTE .MEDSUPPLY Qty: 100 RF: 5 insulin aspart U-100 [Novolog Flexpen U-100 Insulin] 100 unit/mL (3 mL) insulin pen 55 - 80 unit subcut TID Qty: 3 RF: 5 prenat.vits,karen,[id number]-[id number]-tfhtr Tablet 1 tab PO DAILY RF: 0 aspirin 81 mg tablet,chewable 81 mg PO DAILY RF: 0 (DME) OneTouch Verio test strips Strip See Rx Instructions .ROUTE .MEDSUPPLY Qty: 100 RF: 5 amitriptyline 10 mg tablet 10 mg PO QHS Qty: 30 RF: 6 Levemir FlexTouch U-100 Insuln 100 unit/mL (3 mL) insulin pen 35 unit SC BID Qty: 15 RF: 5 Discharge Instructions Instructions: Neck Pain (ED) Additional Instructions: Take the Norflex and ibuprofen Take oxycodone for pain control with these interventions Take Diovan Toprol, patient, do not drive for 8 hours after taking this medication You should also not drive for 12 hours after taking the muscle relaxant Use caution when combining a muscle relaxant with an opiate Please return earlier should you have fever, chills, dizziness, worsening headache, or with any new symptoms Discharge Data Discharge Date/Time-TO BE ENTERED AT DEPARTURE: 03/29/21 19:36 Medical Decision Making Patient appears well, she is symptomatically improved Patient does have significant comorbidities for her age, I think this is a straightforward torticollis, there was no ominous mechanism concerning for carotid or vertebral artery dissection and no dizziness or headache associated She has a nonfocal neurological exam with her reproducible muscle spasm and inability to turn her neck secondary to discomfort There is no indication for additional intervention at this time Small amount of opiate analgesia supplied Patient reports patient will take ibuprofen at home Narcotic prescription supplied Discharged home in stable condition with stable vitals, should she have new or worsening complaints, she is instructed to return immediately for reevaluation in the emergency room Medical Records Medical records reviewed: Yes I reviewed the patient's medical records. Lab Data Lab results reviewed: Yes I reviewed the patient's lab results. HPI General Mode of arrival: ambulatory. Date/Time Provider Initiated Documentation: 03/29/21 18:03. Limitations to Documentation: no limitations. Information obtained by: patient. HPI Narrative: 35-year-old female with history of diabetes, hypertension presents with report of right neck pain. She denies any whiplash injuries or trauma. She states she woke with the pain this morning. She denies any tenderness of the head. She states she has pain in the past but is not her quite as much. She states she cannot move the house secondary to discomfort. She denies any fever or chills. She denies any dizziness or headache. She states that she does have pain in the back of her neck. She states that the pain radiates down and does not radiate up. She denies any vision change or speech or sensation change. She denies any chest pain or shortness of breath. If she stays perfectly still her pain is improved. She has tried Tylenol and IcyHot at home without relief in her pain. Related Data Home Medications Medication Instructions Recorded Confirmed prenat.vits,karen,[id number]-jniev 1 tab PO DAILY 10/17/19 03/29/21 aspirin 81 mg chewable tablet 81 mg PO DAILY 03/17/20 03/29/21 rosuvastatin 40 mg tablet 40 mg PO DAILY #90 tab 08/04/20 03/29/21 blood sugar diagnostic #100 each 09/01/20 12/23/20 amitriptyline 10 mg tablet 10 mg PO QHS #30 tab 12/16/20 03/29/21 albuterol sulfate 90 mcg/actuation 2 puff INHALATION Q6H PRN #8.5 g 12/23/20 03/29/21 aerosol inhaler insulin aspart U-100 100 unit/mL 55 - 80 unit SUBCUT TID #3 box 12/23/20 03/29/21 (3 mL) subcutaneous pen omeprazole 40 mg capsule,delayed 40 mg PO DAILY #60 cap 12/23/20 03/29/21 release pen needle, diabetic 30 gauge x #100 each 12/23/20 12/23/2012/13 insulin detemir U-100 100 unit/mL 35 unit SC BID #15 ml 12/24/20 03/29/21 (3 mL) subcutaneous pen orphenadrine citrate 100 mg PO BID #10 tab 03/29/21 Previous Rx's Medication Instructions Recorded rosuvastatin 40 mg tablet 40 mg PO DAILY #90 tab 08/04/20 blood sugar diagnostic #100 each 09/01/20 amitriptyline 10 mg tablet 10 mg PO QHS #30 tab 12/16/20 albuterol sulfate 90 mcg/actuation 2 puff INHALATION Q6H PRN #8.5 g 12/23/20 aerosol inhaler insulin aspart U-100 100 unit/mL 55 - 80 unit SUBCUT TID #3 box 12/23/20 (3 mL) subcutaneous pen omeprazole 40 mg capsule,delayed 40 mg PO DAILY #60 cap 12/23/20 release pen needle, diabetic 30 gauge x #100 each 12/23/2012/13 insulin detemir U-100 100 unit/mL 35 unit SC BID #15 ml 12/24/20 (3 mL) subcutaneous pen orphenadrine citrate 100 mg PO BID #10 tab 03/29/21 Allergies Allergy/AdvReac Type Severity Reaction Status Date / Time Latex, Natural Rubber Allergy Mild Skin Rash Verified 03/29/21 18:00 metformin AdvReac Unknown DIARRHEA Verified 03/29/21 18:00 General Stated Complaint: Orthopedic JED: 3 Review of Systems All systems reviewed & are unremarkable except as noted in HPI and below PFSH Medical History Abnormal amniotic fluid (11/04/13) Anemia, unspecified (07/02/15) Anxiety Longstanding. Was in counseling and had taken Paxil in past with +/- results. 2004 had psych hospitalization. Is applying for disability because of anxiety. Bilateral lower extremity edema BMI 38.0-38.9,adult Candidiasis of skin 2013 during beneath axilla Carpal tunnel syndrome Diabetes mellitus Diabetes mellitus Dx 2009. Began Lantus 2012 with Novalog added. 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 Has not followed up with optomotrist Encounter for management and injection of depo-Provera (03/14/18) High risk due to assisted reproductive technology (10/08/13) High-risk in third trimester Iron deficiency anemia Large for dates fetus (11/04/13) Lipids abnormal Morbid obesity 02/2018 BMI 48 kg/m2 Morbid obesity BMI-53 NST (non-stress test) nonreactive Polyhydramnios Rh neg trauma 2004 laceration Uses 3-month hormonal injection as primary control method (01/25/17) Vaginal leukorrhea (06/25/13) Surgical History section (06/22/16) 01/02/14 PC/S. EGD - IV Sedation (~08/2011) DR. CANALES Endoscopic Carpal Tunnel release History of low vertical section (02/17/16) at 36 weeks for failed induction due to preeclampsia Left wrist 02/2013 Sigmoidoscopy Status post repeat low transverse section Family History Mother Substance abuse Diabetes Depression Father Essential hypertension Hyperlipidemia Brother Substance abuse Depression Grandfather Diabetes Heart disease Hyperlipidemia Stroke Grandmother Personal history of malignant neoplasm LUNG Grandmother Diabetes Heart disease Stroke Sister Diabetes Brother Substance abuse Diabetes Depression Paternal Grandmother Heart disease Social History (Updated 12/30/20 @ 15:49 by Imelda Kincaid) Smoking/Tobacco Use Status: Former Tobacco Use Smoking risk assessment performed?: Yes Alcohol Intake: current Alcohol Intake frequency: holidays/special occasions only Drug use: Occasionally Substance use type: marijuana Adopted: Yes Caregiver/Support person: No Household members: spouse and children Number of Children: 3 Do you need help understanding health information?: Never current occupation: stay at home mom Pets and animals: No Sexually active: Yes Do you think of yourself as: straight/heterosexual Current gender identity: female What is your relationship status?: How often do you talk on the phone with friends or family?: three or more times per week How often do you get together with friends or relatives?: twice per week How often do you attend scientologist or sikh services?: decline to answer Do you belong to any clubs or organized social groups?: no Panel score (0-1 are the most socially isolated patients): 2 What type of physical activity do you participate in: walking Duration: > 90 minutes/day Frequency: daily Mary/Yarsanism: No preference Seatbelt use: always Helmet use: Yes Helmet use: always Drive intox or ride w/intox rail car driver: No Do you feel safe at home: Yes Do you feel safe in your relationship?: Yes History History 4 Para 2 Hx # Term Pregnancies 1 Multiple births 0 Hx # Pregnancies 1 Ectopic pregnancies 0 AB induced 0 Hx Number of Living Children 2 AB spontaneous 1 Past Pregnancies Del. Date GA/Weeks # Outcome Route Wgt Sex Labor Lgth Anesthesia Location [facility] 12/10/08 6 01/02/14 36 No Successful 4394.176 g Female dx of pre-eclampsia and low blood levels yet pt not know what[facility] Dr. Hernandez, [facility] 06/22/16 37 No Successful 5.471 kg Male [facility] c/s [facility] Dr. Hernandez [facility] 05/19/20 37 No Successful 5.245 kg Male [facility] Delivery Date: 12/10/08 sab resolved at home w/o need for d&c. Bart Cordova Delivery Date: 01/02/14 low blood count probably assoc. with pre-e, yet w/o specifics. Bart Cordova Delivery Date: 06/22/16 w/o c/o. Bart Cordova Delivery Date: 05/19/20 No notes to display Exam Const General: cooperative and no acute distress Orientation: alert and oriented x3 HENMT Head: normal to inspection Mouth: oral mucosae normal Throat: posterior oropharynx normal Eyes Pupils: PERRL EOM: EOM intact bilaterally Neck Other: No carotid bruit or pulsatile mass, tenderness to palpation to sternocleidomastoid muscle and paraspinal muscles on the right side, spasm noted back, no crepitus, torticollis Resp Effort & Inspection: normal respiratory effort Cardio Rate: regular rate Skin General skin exam: no rashes or lesions noted Neuro General: patient alert and patient oriented x3 Cranial Nerves: CN's II-XI intact bilaterally Cognition: normal cognition Speech: speech normal Gait: normal gait Motor: muscle tone normal throughout and strength 5/5 throughout Sensory Exam: no sensory deficits noted Other: Sensation intact distally Extrem Other: Neurovascularly intact Course Vital Signs Vital signs: Vital Signs Temperature 36.6 C 03/29/21 17:55 Pulse 100 H 03/29/21 17:55 Respiratory Rate 18 03/29/21 17:55 Blood Pressure 150/88 H 03/29/21 17:55 Pulse Oximetry 98 03/29/21 17:55 Temperature 36.6 C 03/29/21 17:55 Temperature Source Skin 03/29/21 17:55 Pulse 100 H 03/29/21 17:55 Respiratory Rate 18 03/29/21 17:55 Respiratory Effort Non-Labored 03/29/21 18:01 Blood Pressure 150/88 H 03/29/21 17:55 Blood Pressure Position Sitting 03/29/21 17:55 Pulse Oximetry 98 03/29/21 17:55 Oxygen Delivery Method Room Air 03/29/21 17:55 Oxygen Flow Rate 0 03/29/21 17:55 Pain Level 9 03/29/21 18:02
[2021-03-29] MEDS: oxyCODONE 5 MG TAB PO (18:40)
[2021-03-29] MEDS: Ketorolac 15 MG/ML VIAL IM (18:42)
[2021-03-29] MEDS: Orphenadrine 60 MG/2 ML VIAL IM (18:46)
[2021-03-29 19:11] VITALS: BP 137/92; PULSE 92; RESP 16; O2SAT 98
== END 2021-03-29 19:36 | disposition home or self-care (01) ==
PROVIDERS: Emergency Provider Physician Assistant; PCP Family Medicine
DX: M54.2 Cervicalgia (principal); M62.838 Other muscle spasm
CPT/HCPCS: 96372; 99284; J2360; 99283; J1885

== ENCOUNTER 2021-06-23 12:38 | Outpatient (REF) | payer MEDICAID, SELFPAY | END 2021-06-23 12:39 | disposition home or self-care (01) | LOC: LBN 12:38 | PROVIDERS: Visit Provider Family Medicine | DX: R82.90 Unspecified abnormal findings in urine (principal) | CPT/HCPCS: 87077; 87086; 87186 ==

== ENCOUNTER 2021-11-01 16:33 | Emergency (ER) | payer MEDICAID, SELFPAY ==
[2021-11-01 16:35] VITALS: BP 140/87; PULSE 93; RESP 16; TEMP 37.6; O2SAT 98
--- NOTE | 2021-11-01 16:35 | ED.GENADUL_ITS ---
Discharge Plan Disposition Patient Disposition: HOME Condition: Improving Discharge Details Clinical Impression: Strep throat Primary Care Provider: Sydney Allen ED Provider: Kennedy Sousa Home Meds and New Rx's Prescriptions: New penicillin V potassium 500 mg tablet 500 mg PO TID 10 Days Qty: 30 0RF Continued rosuvastatin [Crestor] 40 mg tablet 40 mg PO DAILY Qty: 90 3RF omeprazole 40 mg capsule,delayed release(DR/EC) 40 mg PO DAILY Qty: 60 3RF multivitamin Tablet 1 tab PO DAILY 0RF cyclobenzaprine 10 mg tablet 10 mg PO TID PRN (Reason: muscle spasm) Qty: 30 0RF meloxicam 15 mg tablet 15 mg PO DAILY Qty: 30 1RF Rx Instructions: start after 5 days of prednisone/ take one tablet daily with food for 2 weeks and repeat if needed aspirin 81 mg tablet,chewable 81 mg PO DAILY 0RF (DME) FreeStyle Estela 14 Day Sensor Kit See Rx Instructions .ROUTE .MEDSUPPLY Qty: 6 3RF Rx Instructions: As directed (DME) FreeStyle Estela 14 Day [place] Misc See Rx Instructions .ROUTE .MEDSUPPLY Qty: 1 0RF Rx Instructions: As directed (DME) OneTouch Verio test strips Strip See Rx Instructions .ROUTE .MEDSUPPLY Qty: 100 5RF Rx Instructions: before meals and bedtime amitriptyline 10 mg tablet 10 mg PO QHS Qty: 30 6RF albuterol sulfate [ProAir HFA] 90 mcg/actuation HFA aerosol inhaler 2 puff Inhalation Q6H PRN (Reason: shortness of breath or wheezing) Qty: 8.5 3RF (DME) FreeStyle Estela 2 [place] Misc See Rx Instructions .ROUTE .MEDSUPPLY Qty: 1 0RF Rx Instructions: As directed (DME) FreeStyle Estela 2 Sensor Kit See Rx Instructions .ROUTE .MEDSUPPLY Qty: 6 3RF Rx Instructions: As directed (DME) pen needle, diabetic [AboutTime Pen Needle] 30 gauge x 5/16 needle See Rx Instructions .ROUTE .MEDSUPPLY Qty: 300 5RF Rx Instructions: Tresiba and Novlog TID insulin aspart U-100 [Novolog Flexpen U-100 Insulin] 100 unit/mL (3 mL) insulin pen See Rx Instructions .ROUTE .COMPLEX Qty: 45 4RF Dose Instruction: INJECT 55 TO 80 UNITS UNDER THE SKIN THREE TIMES A DAY PER SLIDING SCALE Rx Instructions: INJECT 55 TO 80 UNITS UNDER THE SKIN THREE TIMES A DAY PER SLIDING SCALE Tresiba FlexTouch U-200 200 unit/mL (3 mL) insulin pen 60 unit subcut DAILY Qty: 3 3RF Discontinued ciprofloxacin HCl 250 mg tablet 250 mg PO BID Qty: 14 0RF Discharge Instructions Instructions: Upper Respiratory Infection (ED), Strep Throat (ED) Additional Instructions: Home to rest. Small, frequent sips of fluids so that you maintain good hydration. Tylenol and/or ibuprofen as needed for pain. Take penicillin as prescribed. Follow-up with your doctor if not improved in 1 week's time Medical Decision Making 36-year-old otherwise healthy female with a history of diabetes. Her child has strep the patient has sore throat. Her exam reveals erythema with white exudate exudative pharyngitis. I will treat her with a course of penicillin. Stable appropriate for discharge to home. HPI General Mode of arrival: ambulatory . Date/Time Provider Initiated Documentation: 11/01/21 16:34 . Limitations to Documentation: no limitations . Information obtained by: patient . History of Present Illness 36 year old F presents to the emergency department with the chief complaint of Sore throat, child with strep, described as moderate, Quality is described as dull, and is localized to the mouth. Patient reports no radiation. Patient started experiencing this hour(s) and it has been constant. improves with No relieving factors improve symptom(s), No exacerbating factors reported . Patient notes fever/chills; denies cough, loss of appetite, nausea/vomiting and shortness of breath. Patient did receive the following treatments prior to arrival, none Related Data Home Medications Medication Instructions Recorded Confirmed aspirin 81 mg chewable tablet 81 mg PO DAILY 03/17/20 09/17/21 rosuvastatin 40 mg tablet (Crestor) 40 mg PO DAILY #90 tab 08/04/20 09/17/21 blood sugar diagnostic (OneTouch #100 each 09/01/20 09/17/21 Verio test strips) amitriptyline 10 mg tablet 10 mg PO QHS #30 tab 12/16/20 09/17/21 omeprazole 40 mg capsule,delayed 40 mg PO DAILY #60 cap 12/23/20 09/17/21 release cyclobenzaprine 10 mg tablet 10 mg PO TID PRN #30 tab 03/31/21 09/17/21 meloxicam 15 mg tablet 15 mg PO DAILY #30 tab 03/31/21 09/17/21 multivitamin 1 tab PO DAILY 06/23/21 09/17/21 albuterol sulfate 90 mcg/actuation 2 puff INHALATION Q6H PRN #8.5 g 07/08/21 09/17/21 aerosol inhaler (ProAir HFA) flash glucose scanning reader #1 ea 08/24/21 09/17/21 (FreeStyle Estela 14 Day [place]) flash glucose sensor (FreeStyle #6 ea 08/24/21 09/17/21 Estela 14 Day Sensor) flash glucose scanning reader #1 ea 09/01/21 09/17/21 (FreeStyle Estela 2 [place]) flash glucose sensor (FreeStyle #6 ea 09/01/21 09/17/21 Estela 2 Sensor) pen needle, diabetic 30 gauge x #300 ea 09/17/21 09/17/21/16 (AboutTime Pen Needle) insulin aspart U-100 100 unit/mL See Rx Instructions .ROUTE 10/04/21 (3 mL) subcutaneous pen (Novolog .COMPLEX #45 milliliter Flexpen U-100 Insulin aspart) insulin degludec 200 unit/mL (3 60 unit (0.3 mL) SUBCUT DAILY #3 ml 10/04/21 mL) subcutaneous pen (Tresiba FlexTouch U-200 insulin) penicillin V potassium 500 mg 500 mg PO TID 10 Days #30 tab 11/01/21 tablet Previous Rx's Medication Instructions Recorded rosuvastatin 40 mg tablet (Crestor) 40 mg PO DAILY #90 tab 08/04/20 blood sugar diagnostic (OneTouch #100 each 09/01/20 Verio test strips) amitriptyline 10 mg tablet 10 mg PO QHS #30 tab 12/16/20 omeprazole 40 mg capsule,delayed 40 mg PO DAILY #60 cap 12/23/20 release cyclobenzaprine 10 mg tablet 10 mg PO TID PRN #30 tab 03/31/21 meloxicam 15 mg tablet 15 mg PO DAILY #30 tab 03/31/21 albuterol sulfate 90 mcg/actuation 2 puff INHALATION Q6H PRN #8.5 g 07/08/21 aerosol inhaler (ProAir HFA) flash glucose scanning reader #1 ea 08/24/21 (FreeStyle Estela 14 Day [place]) flash glucose sensor (FreeStyle #6 ea 08/24/21 Estela 14 Day Sensor) flash glucose scanning reader #1 ea 09/01/21 (FreeStyle Estela 2 [place]) flash glucose sensor (FreeStyle #6 ea 09/01/21 Estela 2 Sensor) pen needle, diabetic 30 gauge x #300 ea 09/17/2112/13 (AboutTime Pen Needle) insulin aspart U-100 100 unit/mL See Rx Instructions .ROUTE 10/04/21 (3 mL) subcutaneous pen (Novolog .COMPLEX #45 milliliter Flexpen U-100 Insulin aspart) insulin degludec 200 unit/mL (3 60 unit (0.3 mL) SUBCUT DAILY #3 ml 10/04/21 mL) subcutaneous pen (Tresiba FlexTouch U-200 insulin) penicillin V potassium 500 mg 500 mg PO TID 10 Days #30 tab 11/01/21 tablet Allergies Allergy/AdvReac Type Severity Reaction Status Date / Time Latex, Natural Rubber Allergy Mild Skin Rash Verified 08/24/21 14:49 metformin AdvReac Unknown DIARRHEA Verified 08/24/21 14:49 General JED: 3 Review of Systems Narrative: No vomiting, no cough. Positive sick contacts with child PFSH All Active Problems (Updated 11/01/21 @ 16:36 by Kennedy Sousa MD) Strep throat (Acute) Increased body mass index (BMI) (Acute) Acute neck pain (Acute) Contact dermatitis (Acute) hand and glove distribution. will Rx with topical steroid and different gloves at work. Diabetes mellitus (Chronic) Carpal tunnel syndrome (Acute 02/11/13) History of esophagogastroduodenoscopy (Acute) History of orthopedic surgery (Acute) History of severe pre-eclampsia (Acute 02/17/16) Smoker (Acute) Hamartomatous disease or syndrome (Acute 09/15/15) Vitamin B12 deficiency anemia due to selective vitamin B12 malabsorption with proteinuria (Acute) TAKING ORAL B/12 W/ NORMAL B12 Type II diabetes mellitus with complication, uncontrolled (Acute) Polycystic ovaries (Acute 06/10/13) Hypothyroidism (Acute 07/26/13) per [facility] recommendation, treat to keep TSH < 2.0 during ; last 05-16-16 wnl Hyperlipidemia (Acute 02/14/12) History of severe pre-eclampsia (Acute 02/17/16) Headache (Acute) Gastroesophageal reflux disease (Acute) rhonda CANALES; EGD 08/2011 normal Drusen of optic disc (Acute 07/03/13) Depressive disorder (Acute) ? of bipolar; hosp. [facility] 2003 Anxiety PTSD Asthma (Acute 06/25/13) Medical History Abnormal amniotic fluid (11/04/13) Anemia, unspecified (07/02/15) Anxiety Longstanding. Was in counseling and had taken Paxil in past with +/- results. 2003 had psych hospitalization. Is applying for disability because of anxiety. Bilateral lower extremity edema Candidiasis of skin 2013 during beneath axilla Carpal tunnel syndrome Diabetes mellitus Dx 2009. Began Lantus 2012 with Novalog added. 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 Has not followed up with optomotrist Encounter for management and injection of depo-Provera (03/14/18) High risk due to assisted reproductive technology (10/08/13) High-risk in third trimester Iron deficiency anemia Large for dates fetus (11/04/13) Lipids abnormal Morbid obesity 02/2018 BMI 48 kg/m2 Morbid obesity BMI-53 NST (non-stress test) nonreactive Polyhydramnios with uncertain dates in first trimester (01/05/16) Rh neg Rh negative state in antepartum period Supervision of other high risk pregnancies, second trimester (01/19/16) Supervision of other high risk pregnancies, third trimester (04/19/16) trauma 2005 laceration Uses 3-month hormonal injection as primary control method (01/25/17) Vaginal leukorrhea (06/25/13) Surgical History section (06/22/16) 01/02/14 PC/S. EGD - IV Sedation (~08/2011) DR. CANALES Endoscopic Carpal Tunnel release History of section (03/15/16) History of low vertical section (02/17/16) at 36 weeks for failed induction due to preeclampsia History of Surgical Procedure Primary delivery, Rui, followed by an elective , Medardo Left wrist 02/2013 Previous section (03/15/16) low transverse uterine incision, Pfannensteil skin incision at 36 weeks G1 for severe preeclampsia Sigmoidoscopy Status post repeat low transverse section Family History Mother Substance abuse Diabetes Depression Father Essential hypertension Hyperlipidemia Brother Substance abuse Depression Grandfather Diabetes Heart disease Hyperlipidemia Stroke Grandmother Personal history of malignant neoplasm LUNG Grandmother Diabetes Heart disease Stroke Sister Diabetes Brother Substance abuse Diabetes Depression Paternal Grandmother Heart disease Social History Smoking/Tobacco Use Status: Former Tobacco Use Smoking risk assessment performed?: Yes Alcohol Intake: current Alcohol Intake frequency: holidays/special occasions only Drug use: Occasionally Substance use type: marijuana Adopted: Yes Caregiver/Support person: No Household members: spouse and children Number of Children: 3 Do you need help understanding health information?: Never current occupation: stay at home mom Pets and animals: No Sexually active: Yes Do you think of yourself as: straight/heterosexual Current gender identity: female What is your relationship status?: How often do you talk on the phone with friends or family?: three or more times per week How often do you get together with friends or relatives?: twice per week How often do you attend mormon or nondenominational services?: decline to answer Do you belong to any clubs or organized social groups?: no Panel score (0-1 are the most socially isolated patients): 2 What type of physical activity do you participate in: walking Duration: > 90 minutes/day Frequency: daily Mary/Buddhist: No preference Seatbelt use: always Helmet use: Yes Helmet use: always Drive intox or ride w/intox lease purchase driver: No Do you feel safe at home: Yes Do you feel safe in your relationship?: Yes History History 4 Para 2 Hx # Term Pregnancies 1 Multiple births 0 Hx # Pregnancies 1 Ectopic pregnancies 0 AB induced 0 Hx Number of Living Children 2 AB spontaneous 1 Past Pregnancies Del. Date GA/Weeks # Outcome Route Wgt Sex Labor Lgth Anesthes ia Location [facility] 12/10/08 6 01/02/14 36 No Successful 4394.176 g Female dx of p re-eclampsia and low blood levels yet pt not know what. regional Dr. Juan dubose, [facility] 06/22/16 37 No Successful 5.471 kg Male [facility] c/s regional Dr. Hernandez [facility] 05/19/20 37 No Successful 5.245 kg Male [facility] Delivery Date: 12/10/08 Last Updated by: Bart Cordova CNM sab resolved at home w/o need for d&c. Delivery Date: 01/02/14 Last Updated by: Bart Cordova CNM low blood count probably assoc. with pre-e, yet w/o specifics. Delivery Date: 06/22/16 Last Updated by: Bart Cordova CNM w/o c/o. Exam Narrative Exam Narrative: GEN: awake, alert, oriented 3. Pleasant, well groomed, interactive. HEAD: Normocephalic, atraumatic ENT: Mucous membranes moist, oropharynx erythematous tonsillar pillars with overlying white exudate, External ear exam unremarkable EYES: PERRL, EOMI NECK: Full ROM, no CASSIA, no menigismus CHEST/RESP: Nontender, clear to auscultation bilateral, no wheeze/rhonchi/rales CARDIOVASCULAR: RRR, no murmur, rub baylee. 2+ Rad pulse bilateral ABDOMEN: Soft, nontender, no mass. +Bowel sounds EXT: Full ROM, no edema, no rash Neuro: Grossly normal neurologic exam, conversant, interactive. Psych: Speech fluent, thoughts congruent, affect normal
== END 2021-11-01 16:45 | disposition home or self-care (01) ==
LOC: ER 16:54
PROVIDERS: Emergency Provider Emergency Medicine
DX: J02.0 Streptococcal pharyngitis (principal)
CPT/HCPCS: 99283

== ENCOUNTER 2022-04-29 20:02 | Outpatient (REF) | payer MEDICAID, SELFPAY ==
[2022-04-29 21:37] LABS: COMMENT (LAB VIEW ONLY) 34.04 mg/dL; Microalb ug/mg Crea 61.4 ug/mg Cr
== END 2022-04-29 20:03 | disposition home or self-care (01) ==
LOC: LBN 20:02
PROVIDERS: Visit Provider Family Medicine
DX: E11.9 Type 2 diabetes mellitus without complications (principal)
CPT/HCPCS: 82043; 82570

== ENCOUNTER 2022-12-13 20:49 | Outpatient (REF) | payer MEDICAID, SELFPAY ==
[2022-12-13 21:29] LABS: ALT 25 U/L (14-59); AST 14 U/L (15-37); Albumin 4.2 g/dL (3.4-5.0); Alkaline Phosphatase 59 U/L (46-116); Anion Gap 11.2 mmol/L (3-11); BUN 9 mg/dL (7-18); Bilirubin, Total 0.3 mg/dL (0.2-1.0); CO2 25.8 mmol/L (21.0-32.0); CREATININE 0.8 mg/dL (0.55-1.02); Calcium 9.4 mg/dL (8.5-10.1); Calculated LDL 62 mg/dL (<100); Chloride 103 mmol/L (98-107); Cholesterol 144 mg/dL (<200); Estimated GFR 97.26 (mL/min/1.73m2); Glucose 167 mg/dL (74-106); HDL Cholesterol 53 mg/dL (40-60); Hemoglobin A1C 8.3 % (<5.7); Sodium 140 mmol/L (136-145); Total Protein 7.8 g/dL (6.4-8.2); Triglyceride 147 mg/dL (<150)
[2022-12-13 21:38] LABS: COMMENT (LAB VIEW ONLY) 328.22 mg/dL; Microalb ug/mg Crea 21.8 ug/mg Cr
== END 2022-12-13 20:50 | disposition home or self-care (01) ==
LOC: LBN 20:49
PROVIDERS: PCP Nurse Practitioner Family; Visit Provider Nurse Practitioner Family
DX: E11.65 Type 2 diabetes mellitus with hyperglycemia (principal); E78.5 Hyperlipidemia, unspecified
CPT/HCPCS: 80053; 80061; 82043; 82570; 83036

== ENCOUNTER 2023-02-01 12:39 | Emergency (ER) | payer MEDICAID, SELFPAY ==
[2023-02-01 12:49] VITALS: BP 145/87; PULSE 81; RESP 20; TEMP 37; O2SAT 99
--- NOTE | 2023-02-01 13:15 | DI.RAD_ITS ---
Exam(s) XR CHEST 2V PA LATERAL EXAM: XR CHEST 2V PA LATERAL CLINICAL HISTORY: cough, shortness of breath TECHNIQUE: 2D digital imaging was performed. COMPARISON: CR CHEST 2 VIEWS PA,LAT from 04/18/2017 FINDINGS: HEART: Normal size. Aorta: Not dilated. PULMONARY VASCULATURE: Normal. LUNGS: Clear. PLEURAL SPACE: No pleural effusion or pneumothorax. BONE:Unremarkable for age. IMPRESSION: No acute abnormality. DATA REPOSITORY: RADIATION DOSE DELIVERED:
[2023-02-01 13:40] LABS: Source Nasal/Nares
--- NOTE | 2023-02-01 14:31 | ED.GENADUL_ITS ---
Discharge Plan Disposition Patient Disposition: Home Discharge Details Clinical Impression: Bronchitis Primary Care Provider: Gee Shannon ED Provider: Palmira Campos Home Meds and New Rx's Prescriptions: New Flovent Diskus 100 mcg/actuation blister with device 2 inh inhalation BID Qty: 60 0RF albuterol sulfate [Ventolin HFA] 90 mcg/actuation HFA aerosol inhaler 2 puff inhalation Q6H PRNQty: 6.7 0RF Continued multivitamin Tablet 1 tab PO DAILY cyclobenzaprine 10 mg tablet 10 mg PO TID PRN (Reason: muscle spasm) Qty: 30 0RF Trulicity 0.75 mg/0.5 mL pen injector 0.75 mg subcut QWEEK Qty: 2 12RF spironolactone 100 mg tablet 100 mg PO BID Qty: 180 1RF insulin degludec [Tresiba FlexTouch U-200] 200 unit/mL (3 mL) insulin pen 60 unit subcut DAILY Qty: 15 3RF aspirin 81 mg tablet,chewable 81 mg PO DAILY meloxicam 15 mg tablet 15 mg PO DAILY Qty: 90 3RF Rx Instructions: Take WITH FOOD x1 daily (DME) FreeStyle Estela 2 Sensor Kit See Rx Instructions .ROUTE .MEDSUPPLY Qty: 6 3RF Rx Instructions: As directed (DME) OneTouch Verio test strips Strip See Rx Instructions .ROUTE .MEDSUPPLY Qty: 100 5RF Rx Instructions: before meals and bedtime albuterol sulfate [ProAir HFA] 90 mcg/actuation HFA aerosol inhaler 2 puff Inhalation Q6H PRN (Reason: shortness of breath or wheezing) Qty: 8.5 3RF (DME) FreeStyle Estela 2 Rigby Misc See Rx Instructions .ROUTE .COMPLEX Qty: 1 6RF Dose Instruction: USE DIRECTED Rx Instructions: USE DIRECTED (DME) Blood Glucose Test Strip See Rx Instructions .ROUTE .MEDSUPPLY Qty: 100 12RF Rx Instructions: As directed (DME) FreeStyle Precision Jose Strips Strip See Rx Instructions .Route Qty: 50 4RF Rx Instructions: Test QID when CGM system fails As directed (DME) lancets [FreeStyle Lancets] 28 gauge misc See Rx Instructions .Route Qty: 100 4RF Rx Instructions: Testing QID when CGM is not working As directed (DME) pen needle, diabetic 30 gauge x 5/16 needle See Rx Instructions .ROUTE .MEDSUPPLY Qty: 400 3RF Rx Instructions: Use with Tresiba BID and Novolog TID omeprazole 40 mg capsule,delayed release(DR/EC) 40 mg PO DAILY Qty: 90 3RF amitriptyline 10 mg tablet 10 mg PO QHS Qty: 90 3RF rosuvastatin [Crestor] 40 mg tablet 40 mg PO DAILY Qty: 90 4RF insulin aspart U-100 [Novolog FlexPen U-100 Insulin] 100 unit/mL (3 mL) insulin pen See Rx Instructions .ROUTE .COMPLEX Qty: 45 4RF Dose Instruction: INJECT 55 TO 80 UNITS UNDER THE SKIN THREE TIMES A DAY PER SLIDING SCALE Rx Instructions: INJECT 30 TO 50UNITS UNDER THE SKIN THREE TIMES A DAY PER SLIDING SCALE Discharge Instructions Instructions: Acute Bronchitis (ED) Additional Instructions: Your chest x-ray does not show evidence of pneumonia or obvious bacterial source of infection Please use the Flovent in addition to your albuterol inhaler, I am giving you any albuterol inhaler Use the Flovent as prescribed Keep yourself hydrated with fluids Follow-up with your doctor in 2 to 3 days for reassessment and return earlier should you have new or worsening complaints Referrals: Gee Shannon NP [Primary Care Provider] - Discharge Data Discharge Date/Time-TO BE ENTERED AT DEPARTURE: 02/01/23 14:41 Medical Decision Making 37-year-old female, alert, oriented, no acute distress, oxygenation 99% on room air, afebrile Chest x-ray does not show evidence of pneumonia or infiltrate Albuterol is reportedly and patient is not on an inhaled steroid, will add inhaled steroid and supply with any albuterol with spacer COVID swab negative Denies chance of Return precautions reviewed and patient expressed understanding HPI General Date/Time Provider Initiated Documentation: 02/01/23 13:05 . HPI Narrative: This 37-year-old female presents with sore throat, cough, flulike symptoms for 1 week. History of diabetes. States her blood sugars have been slightly high at 180. Denies any fever or chills. Son is sick with similar symptoms. Took a COVID swab at home that was negative. History of asthma, using typical medications. Presents as she is concerned she may have pneumonia. Denies any calf pain or swelling, recent flights, surgeries, long drives, history of coagulopathy. Able to swallow and has been drinking within normal limits per patient. Related Data Home Medications Medication Instructions Recorded Confirmed aspirin 81 mg chewable tablet 81 mg PO DAILY 03/17/20 12/13/22 blood sugar diagnostic (OneTouch #100 ea 09/01/20 12/13/22 Verio test strips) cyclobenzaprine 10 mg tablet 10 mg PO TID PRN muscle spasm #30 03/31/21 12/13/22 tabs multivitamin 1 tab PO DAILY 06/23/21 12/13/22 albuterol sulfate 90 mcg/actuation 2 puff inhalation Q6H PRN 07/08/21 12/13/22 aerosol inhaler (ProAir HFA) shortness of breath or wheezing #8.5 grams meloxicam 15 mg tablet 15 mg PO DAILY #90 tabs 11/25/21 12/13/22 flash glucose scanning reader #1 ea 12/01/21 12/13/22 (FreeStyle Estela 2 Rigby) blood sugar diagnostic (Blood #100 ea 01/13/22 12/13/22 Glucose Test strips) blood sugar diagnostic (FreeStyle #50 ea 01/13/22 12/13/22 Precision Jose Strips) lancets 28 gauge (FreeStyle #100 ea 01/13/22 12/13/22 Lancets) flash glucose sensor (FreeStyle #6 ea 04/26/22 12/13/22 Estela 2 Sensor kit) pen needle, diabetic 30 gauge x #400 ea 04/29/22 12/13/2212/13 omeprazole 40 mg capsule,delayed 40 mg PO DAILY #90 caps 07/28/22 12/13/22 release amitriptyline 10 mg tablet 10 mg PO QHS #90 tabs 09/09/22 12/13/22 dulaglutide 0.75 mg/0.5 mL 0.75 mg (0.5 mL) subcut QWEEK #2 mL 12/13/22 12/13/22 subcutaneous pen injector (Trulicity) insulin degludec 200 unit/mL (3 60 unit (0.3 mL) subcut DAILY #15 12/13/22 12/13/22 mL) subcutaneous pen (Tresiba mL FlexTouch U-200 insulin) spironolactone 100 mg tablet 100 mg PO BID #180 tabs 12/13/22 12/13/22 insulin aspart U-100 100 unit/mL See Rx Instructions .Route 12/19/22 (3 mL) subcutaneous pen (Novolog .COMPLEX #45 mL FlexPen U-100 Insulin aspart) rosuvastatin 40 mg tablet (Crestor) 40 mg PO DAILY #90 tabs 12/19/22 albuterol sulfate 90 mcg/actuation 2 puff inhalation Q6H PRN #6.7 02/01/23 aerosol inhaler (Ventolin HFA) grams fluticasone propionate 100 2 inh inhalation BID #60 ea 02/01/23 mcg/actuation blister powder for inhalation (Flovent Diskus) Previous Rx's Medication Instructions Recorded blood sugar diagnostic (OneTouch #100 ea 09/01/20 Verio test strips) cyclobenzaprine 10 mg tablet 10 mg PO TID PRN muscle spasm #30 03/31/21 tabs albuterol sulfate 90 mcg/actuation 2 puff inhalation Q6H PRN 07/08/21 aerosol inhaler (ProAir HFA) shortness of breath or wheezing #8.5 grams meloxicam 15 mg tablet 15 mg PO DAILY #90 tabs 11/25/21 flash glucose scanning reader #1 ea 12/01/21 (FreeStyle Estela 2 Rigby) blood sugar diagnostic (Blood #100 ea 01/13/22 Glucose Test strips) blood sugar diagnostic (FreeStyle #50 ea 01/13/22 Precision Jose Strips) lancets 28 gauge (FreeStyle #100 ea 01/13/22 Lancets) flash glucose sensor (FreeStyle #6 ea 04/26/22 Estela 2 Sensor kit) pen needle, diabetic 30 gauge x #400 ea 04/29/2212/13 omeprazole 40 mg capsule,delayed 40 mg PO DAILY #90 caps 07/28/22 release amitriptyline 10 mg tablet 10 mg PO QHS #90 tabs 09/09/22 dulaglutide 0.75 mg/0.5 mL 0.75 mg (0.5 mL) subcut QWEEK #2 mL 12/13/22 subcutaneous pen injector (TrulicAdvanced Cooling Therapy) insulin degludec 200 unit/mL (3 60 unit (0.3 mL) subcut DAILY #15 05/16/23 mL) subcutaneous pen (Tresiba mL FlexTouch U-200 insulin) spironolactone 100 mg tablet 100 mg PO BID #180 tabs 12/13/22 insulin aspart U-100 100 unit/mL See Rx Instructions .Route 12/19/22 (3 mL) subcutaneous pen (Novolog .COMPLEX #45 mL FlexPen U-100 Insulin aspart) rosuvastatin 40 mg tablet (Crestor) 40 mg PO DAILY #90 tabs 12/19/22 albuterol sulfate 90 mcg/actuation 2 puff inhalation Q6H PRN #6.7 02/01/23 aerosol inhaler (Ventolin HFA) grams fluticasone propionate 100 2 inh inhalation BID #60 ea 02/01/23 mcg/actuation blister powder for inhalation (Flovent Diskus) Allergies Allergy/AdvReac Type Severity Reaction Status Date / Time Latex, Natural Rubber Allergy Mild Skin Rash Verified 02/01/23 12:52 metformin AdvReac Unknown DIARRHEA Verified 02/01/23 12:52 General Stated Complaint: RespSymp JED: 4 PFSH All Active Problems (Updated 02/01/23 @ 14:30 by MOHINDER Garcia) Bronchitis (Acute) Polycystic ovaries (Acute 06/10/13) Hirsutism, [facility] trialed OCPs and metformin Type 2 diabetes mellitus (Acute) Patellar tendinitis, right knee (Acute) Loose stools (Acute) 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 Began Lantus 2012 with Novalog added. No retinopathy 06/25/13 HbgA1c 9.5 08/23/13 HbgA1c 7.1 10/23/13 HbgA1c 8.0 Hypothyroidism (Chronic 07/26/13) [place] [facility] [place], treat to keep TSH < 2.0 during ; last 05-16- wnl 12/06/19- TSH=1.85 Morbid obesity with BMI of 40.0-44.9, adult (Chronic) Smoker (Acute) Hyperlipidemia (Chronic 02/14/12) Depressive disorder (Chronic) ? of bipolar; [place] 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 Was in counseling and had taken Paxil in past with +/- results. 2003 had psych hospitalization. Is applying for disability because of anxiety. Carpal tunnel syndrome Contact dermatitis hand and glove distribution. will Rx with topical steroid and different gloves at work. Drusen of optic disc noted 03/13/13. 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 EGD - IV Sedation (~08/2011) DR. CANALES Endoscopic Carpal Tunnel release History of esophagogastroduodenoscopy History of low vertical section (02/17/16) at 36 weeks for failed induction due to preeclampsia History of Surgical Procedure Primary delivery, Rui, followed by an elective , Medardo Left wrist 02/2013 Previous section (03/15/16) low transverse uterine incision, Pfannensteil skin incision at 36 weeks G1 for severe preeclampsia Sigmoidoscopy Status post repeat low transverse section Family History Mother Substance abuse Diabetes Depression Father Essential hypertension Hyperlipidemia Brother Substance abuse Depression Grandfather Diabetes Heart disease Hyperlipidemia Stroke Grandmother Personal history of malignant neoplasm LUNG Grandmother Diabetes Heart disease Stroke Sister Diabetes Brother Substance abuse Diabetes Depression Paternal Grandmother Heart disease Social History Smoking/Tobacco Use Status: Former Tobacco Use Smoking risk assessment performed?: Yes Alcohol Intake: current Alcohol Intake frequency: holidays/special occasions only Drug use: Occasionally Substance use type: marijuana Adopted: Yes Caregiver/Support person: No Household members: spouse and children Housing: house Number of Children: 3 Do you need help understanding health information?: Never current occupation: stay at home mom Pets and animals: No Sexually active: Yes Do you think of yourself as: straight/heterosexual Current gender identity: female What is your relationship status?: How often do you talk on the phone with friends or family?: three or more times per week How often do you get together with friends or relatives?: twice per week How often do you attend yarsanism or islam services?: decline to answer Do you belong to any clubs or organized social groups?: no Panel score (0-1 are the most socially isolated patients): 2 What type of physical activity do you participate in: walking Duration: > 90 minutes/day Frequency: daily Mary/Nondenominational: No preference Seatbelt use: always Helmet use: Yes Helmet use: always Drive intox or ride w/intox driver utility worker: No Do you feel safe at home: Yes Do you feel safe in your relationship?: Yes History History 4 Para 2 Hx # Term Pregnancies 1 Multiple births 0 Hx # Pregnancies 1 Ectopic pregnancies 0 AB induced 0 Hx Number of Living Children 2 AB spontaneous 1 Past Pregnancies Del. Date GA/Weeks # Preg Succ Route Wgt Sex Labor Lgth Anesth esia Location Prov Complic 12/10/08 6 01/02/14 36 No 4394.176 g Female dx of pre- eclampsia and low blood levels yet pt not know what. [facility], [facility] 06/22/16 37 No 5.471 kg Male [facility] c/s [facility] Dr[facility] Hernandez [facility] 05/19/20 37 No 5.245 kg Male [facility] D [facility] [place] Delivery Date: 12/10/08 Last Updated by: Bart Cordova CNM sab resolved at home w/o need for d&c. Delivery Date: 01/02/14 Last Updated by: Bart Cordova CNM low blood count probably assoc. with pre-e, yet w/o specifics. Delivery Date: 06/22/16 Last Updated by: Bart Cordova CNM w/o c/o. Course Vital Signs Vital signs: Vital Signs Temperature 37.0 C 02/01/23 12:49 Pulse 81 02/01/23 12:49 Respiratory Rate 20 02/01/23 12:49 Blood Pressure 145/87 H 07/05/23 12:49 Pulse Oximetry 99 02/01/23 12:49 Temperature 37.0 C 02/01/23 12:49 Pulse 81 02/01/23 12:49 Respiratory Rate 20 02/01/23 12:49 Respiratory Effort Normal 02/01/23 13:55 Respiratory Depth Normal 02/01/23 13:55 Blood Pressure 145/87 H 02/01/23 12:49 Blood Pressure Position Sitting 02/01/23 12:49 Pulse Oximetry 99 02/01/23 12:49 Oxygen Delivery Method Room Air 02/01/23 12:49 Oxygen Flow Rate 0 02/01/23 12:49 Lab/Test Results Lab/Test Results: Laboratory Tests Range/Units 02/01/23 13:32 COVID-19 Source Nasal/Nares
[2023-02-01 14:40] VITALS: PULSE 76; RESP 18; O2SAT 97
[2023-02-01 14:48] LABS: COVID-19 PCR Negative (Negative)
== END 2023-02-01 14:41 | disposition home or self-care (01) ==
PROVIDERS: Emergency Provider Physician Assistant; PCP Nurse Practitioner Family
DX: J40 Bronchitis, not specified as acute or chronic (principal); E11.9 Type 2 diabetes mellitus without complications
CPT/HCPCS: 87635; 99283; 71046; 99284

== ENCOUNTER 2023-02-21 18:04 | Outpatient (REF) | payer MEDICAID, SELFPAY ==
--- NOTE | 2023-02-21 15:55 | PAPFT_PTH ---
PATIENT: Lynn Harvey LOC: [facility] U#:[id number] AGE/SX: 37/F ROOM: RE02/21/[address]: Gee Mathew DNP : 1985 BED: DIS: 02/21/2023 SPEC #: [id number] RECD: 02/22/23 12:56 STATUS: YAMILE REQ #: [id number] AMBROSE: 02/21/23 15:[address]: Gee Shannon DEPT: [facility] Cytology RECD BY: Palmira Esposito Tissues: 1 - CX/ENDOCX FOR PAP SMEARS Procedures: PAP THIN PREP/UVM Screening HPV DNA PROBE Comments: [id number]
== END 2023-02-21 18:05 | disposition home or self-care (01) ==
LOC: LBN 18:04
PROVIDERS: PCP Nurse Practitioner Family; Visit Provider Nurse Practitioner Family
DX: Z11.51 Encounter for screening for human papillomavirus (HPV) (principal)
CPT/HCPCS: 88142; 87624

== ENCOUNTER 2024-04-15 09:18 | Emergency (ER) | payer MEDICAID, SELFPAY ==
[2024-04-15 09:21] VITALS: BP 184/100; PULSE 88; RESP 16; TEMP 36; O2SAT 98
[2024-04-15 09:23] VITALS: PULSE 84; RESP 16; TEMP 36; O2SAT 97
--- NOTE | 2024-04-15 09:33 | ED.GENADUL_ITS ---
Discharge Plan Disposition Patient Disposition: Home Condition: Good Discharge Details Clinical Impression: Dental infection, Dental caries, Broken tooth Primary Care Provider: Gee Shannon ED Provider: Yisel Demarco Home Meds and New Rx's Prescriptions: New amoxicillin-pot clavulanate 875-125 mg tablet 1 tab PO BID 5 Days Qty: 10 0RF Continued multivitamin Tablet 1 tab PO DAILY cyclobenzaprine 10 mg tablet 10 mg PO HS PRN (Reason: muscle spasm) Qty: 10 0RF fluticasone propionate [Flovent HFA] 110 mcg/actuation HFA aerosol inhaler 2 puff inhalation BID Qty: 12 12RF (DME) FreeStyle Estela 2 Carson Misc See Rx Instructions .ROUTE .COMPLEX Qty: 1 6RF Dose Instruction: USE DIRECTED Rx Instructions: USE DIRECTED (DME) FreeStyle Precision Jose Strips Strip See Rx Instructions .Route Qty: 50 4RF Rx Instructions: Test QID when CGM system fails As directed (DME) lancets [FreeStyle Lancets] 28 gauge misc See Rx Instructions .Route Qty: 100 4RF Rx Instructions: Testing QID when CGM is not working As directed (DME) pen needle, diabetic 30 gauge x 5/16 needle See Rx Instructions .ROUTE .MEDSUPPLY Qty: 400 3RF Rx Instructions: Use with Tresiba BID and Novolog TID (DME) FreeStyle Estela 2 Sensor Kit See Rx Instructions .ROUTE .MEDSUPPLY Qty: 6 3RF Rx Instructions: As directed amitriptyline 10 mg tablet 10 mg PO QHS Qty: 90 3RF rosuvastatin [Crestor] 40 mg tablet 40 mg PO DAILY Qty: 90 4RF spironolactone 100 mg tablet 100 mg PO BID Qty: 180 1RF Trulicity 0.75 mg/0.5 mL pen injector 0.75 mg subcut QWEEK Qty: 2 12RF omeprazole 40 mg capsule,delayed release(DR/EC) 40 mg PO DAILY Qty: 90 3RF albuterol sulfate [Ventolin HFA] 90 mcg/actuation HFA aerosol inhaler 2 puff inhalation Q6H PRNQty: 6.7 0RF Discharge Instructions Instructions: Dental Pain ED, Tooth Abscess ED Additional Instructions: As we discussed, I am concerned that you have have developing infection. Please encourage hydration. Tylenol and/or ibuprofen as needed for discomfort. Please take the antibiotics as prescribed. Even if symptoms improve, please take the entire course. You will need definitive care with a dentist. Attached is a list of local dentist. Please call to schedule follow-up appointment. Please also follow-up with your primary care within the next 2 weeks for reevaluation and to recheck your blood pressure as it was notably high today. If you develop any headaches, fevers, swelling or other new/worsening symptom please seek care urgently once again. Stand Alone Forms: Work Release Referrals: Gee Shannon NP [Primary Care Provider] - Discharge Data Discharge Date/Time-TO BE ENTERED AT DEPARTURE: 04/15/24 10:10 HPI General Date/Time Provider Initiated Documentation: 04/15/24 09:19 . Limitations to Documentation: no limitations . Information obtained by: patient and RN notes reviewed . History of Present Illness 38 year old F presents to the emergency department with the chief complaint of front dental pain, described as severe and similar to prior episodes, with intensity rated at 9. Quality is described as stabbing, and is localized to the mouth. Patient reports no radiation. Patient started experiencing this week(s) and it has been constant. No relieving factors improve symptom(s), Eating worsens symptoms . Patient notes no other symptoms.. Patient did receive the following treatments prior to arrival, none Related Data Home Medications ?Medication ?Instructions ?Recorded ?Confirmed multivitamin 1 tab PO DAILY 06/23/21 04/15/24 flash glucose scanning reader #1 ea 12/01/21 04/15/24 (FreeStyle Estela 2 Carson) blood sugar diagnostic (FreeStyle #50 ea 01/13/22 04/15/24 Precision Jose Strips) lancets 28 gauge (FreeStyle #100 ea 01/13/22 04/15/24 Lancets) pen needle, diabetic 30 gauge x #400 ea 04/29/22 04/15/2412/13 albuterol sulfate 90 mcg/actuation 2 puff inhalation Q6H PRN #6.7 02/01/23 04/15/24 aerosol inhaler (Ventolin HFA) grams fluticasone propionate 110 2 puff inhalation BID #12 grams 02/21/23 04/15/24 mcg/actuation HFA aerosol inhaler (Flovent HFA) flash glucose sensor (FreeStyle #6 ea 04/10/23 04/15/24 Estela 2 Sensor kit) cyclobenzaprine 10 mg tablet 10 mg PO HS PRN muscle spasm #10 06/19/23 04/15/24 tabs amitriptyline 10 mg tablet 10 mg PO QHS #90 tabs 07/17/23 04/15/24 rosuvastatin 40 mg tablet (Crestor) 40 mg PO DAILY #90 tabs 02/14/24 04/15/24 dulaglutide 0.75 mg/0.5 mL 0.75 mg (0.5 mL) subcut QWEEK #2 mL 02/17/24 04/15/24 subcutaneous pen injector ([facility]) omeprazole 40 mg capsule,delayed 40 mg PO DAILY #90 caps 02/17/24 04/15/24 release spironolactone 100 mg tablet 100 mg PO BID #180 tabs 02/17/24 04/15/24 amoxicillin 875 mg-potassium 1 tab PO BID 5 days #10 tabs 04/15/24 clavulanate 125 mg tablet Previous Rx's ?Medication ?Instructions ?Recorded flash glucose scanning reader #1 ea 12/01/21 (FreeStyle Estela 2 Carson) blood sugar diagnostic (FreeStyle #50 ea 01/13/22 Precision Jose Strips) lancets 28 gauge (FreeStyle #100 ea 01/13/22 Lancets) pen needle, diabetic 30 gauge x #400 ea 04/29/2212/13 albuterol sulfate 90 mcg/actuation 2 puff inhalation Q6H PRN #6.7 02/01/23 aerosol inhaler (Ventolin HFA) grams fluticasone propionate 110 2 puff inhalation BID #12 grams 02/21/23 mcg/actuation HFA aerosol inhaler (Flovent HFA) flash glucose sensor (FreeStyle #6 ea 04/10/23 Estela 2 Sensor kit) cyclobenzaprine 10 mg tablet 10 mg PO HS PRN muscle spasm #10 06/19/23 tabs amitriptyline 10 mg tablet 10 mg PO QHS #90 tabs 07/17/23 rosuvastatin 40 mg tablet (Crestor) 40 mg PO DAILY #90 tabs 02/14/24 dulaglutide 0.75 mg/0.5 mL 0.75 mg (0.5 mL) subcut QWEEK #2 mL 02/17/24 subcutaneous pen injector (Trulicity) omeprazole 40 mg capsule,delayed 40 mg PO DAILY #90 caps 02/17/24 release spironolactone 100 mg tablet 100 mg PO BID #180 tabs 02/17/24 amoxicillin 875 mg-potassium 1 tab PO BID 5 days #10 tabs 04/15/24 clavulanate 125 mg tablet Allergies Allergy/AdvReac Type Severity Reaction Status Date / Time Latex, Natural Rubber Allergy Mild Skin Rash Verified 04/15/24 09:20 metformin AdvReac Unknown DIARRHEA Verified 04/15/24 09:20 General Stated Complaint: DentalOral JED: 4 Review of Systems Constitutional Constitutional: Reports as per HPI, Denies chills, Denies fever(s), Denies headache(s) and Denies poor appetite Eyes Eyes: Denies change in vision and Denies irritation ENT Ears, Nose, Mouth, and Throat: Reports as per HPI, Reports dental pain, Denies dysphagia, Denies dry mouth, Denies ear discharge, Denies otalgia, Denies headache(s), Denies hoarseness, Denies lip swelling, Denies nasal congestion, Denies odynophagia and Denies sore throat Cardiovascular Cardiovascular: Reports as per HPI and Denies chest pain Respiratory Respiratory: Reports as per HPI and Denies cough Gastrointestinal Gastrointestinal: Reports as per HPI, Denies dysphagia, Denies nausea, Denies odynophagia and Denies vomiting Integumentary/Breasts Skin/Breast: Reports as per HPI, Denies erythema, Denies rash and Denies skin pain Neurologic Neurologic: Reports as per HPI and Denies headache(s) Allergic/Immunologic Allergic/Immunologic: Denies lip swelling Exam Const General: cooperative, healthy appearing, comfortable, no acute distress, well developed and well groomed Nutritional Appearance: average body habitus and well nourished Orientation: alert and awake [facility] Head: normal to inspection, normocephalic and atraumatic Ears: hearing grossly normal bilaterally and external ears normal General nose exam: external nose normal and nares normal Face and sinus: normal facial exam, sinuses nontender and face symmetric Teeth image: 2 1. Patient has multiple dental caries but this is the area of maximal discomfort and apparently old fractured tooth. Tooth is black and. She reports it has been like this for several years. No pain along the lingual side with palpation but pain is elicited with palpation over the buccal side. No appreciable fluctuance. No discharge from the tooth. Posterior oropharynx is unremarkable. No swelling inferiorly or under the tongue. Throat: posterior oropharynx normal, tonsils normal and uvula midline Eyes General: appearance normal, both eyes and all related structures Neck Neck: normal visual inspection, full ROM, no lymphadenopathy, supple and no anterior neck swelling Resp Effort & Inspection: normal respiratory effort, able to speak in complete sentences and no respiratory distress Cardio Rate: regular rate Rhythm: regular rhythm Skin General skin exam: no rashes or lesions noted Trauma: no lacerations or abrasions Neuro General: patient alert and patient awake Cognition: normal cognition Speech: speech normal Gait: normal gait Course Vital Signs Vital signs: Vital Signs Temperature 36.0 C L 04/15/24 09:21 Pulse 88 04/15/24 09:21 Respiratory Rate 16 04/15/24 09:21 Blood Pressure 184/100 H 04/15/24 09:21 Pulse Oximetry 98 04/15/24 09:21 Temperature 36.0 C L 04/15/24 09:23 Temperature Source Temporal Artery Scan 04/15/24 09:23 Pulse 84 04/15/24 09:23 Respiratory Rate 16 04/15/24 09:23 Respiratory Effort Normal, Non-Labored 04/15/24 09:23 Blood Pressure 184/100 H 04/15/24 09:21 Blood Pressure Position Sitting 04/15/24 09:21 Pulse Oximetry 97 04/15/24 09:23 Oxygen Delivery Method Room Air 04/15/24 09:23 Oxygen Flow Rate 0 04/15/24 09:21 Pain Level 9 04/15/24 09:23 Comment tyl at 0800 04/15/24 09:21 Medical Decision Making Patient is a pleasant 38-year-old female presenting today with chief complaint of frontal dental pain. She reports that she has had this pain for quite some time and it has increased recently, particularly over the past 3 weeks. Only became constant a few days ago. She denies any fevers or headaches. Does not receive routine dental care as she reports does not have dental insurance. Has not been to a dentist in several years. Has not had pain like this in the past. She does report that she has a few broken teeth and is aware of dental caries. On exam, patient appears nontoxic. She is resting comfortably. She does have some dental pain and does seem to be uncomfortable with movement of her mouth. Patient was noted to be hypertensive and I did encourage that she follow-up with primary care regarding her elevated blood pressure. This may be associated with the discomfort from dental issue. She has a black and cracked #10 tooth. Tenderness along the buccal side, no pain along the lingual side. No appreciable fluctuance to suggest drainable abscess. No pain into the sinuses, nose or head. Remaining intraoral exam is normal aside from overall poor dentition. No lymphadenopathy. Concern patient has developed infection and a chronically diseased tooth. Will begin on Augmentin. Encouraged hydration. We discussed pain management. Encouraged follow-up with dentist. List of local dentist was given to the patient. Strict return precautions were discussed. Work note also given at patient's request. All of her questions and concerns were addressed and she is in agreement this plan. Patient will follow-up with primary care as well regarding blood pressure. 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 Began Lantus 2012 with Novalog added. No retinopathy 06/25/13 HbgA1c 9.5 08/23/13 HbgA1c 7.1 10/23/13 HbgA1c 8.0 Hypothyroidism (Chronic 07/26/13) per [facility] MF recommendation, treat to keep TSH < 2.0 during ; last 05-16- wnl 12/06/19- TSH=1.85 Morbid obesity with BMI of 40.0-44.9, adult (Chronic) Smoker (Acute) Hyperlipidemia (Chronic 02/14/12) Depressive disorder (Chronic) ? of bipolar; hosp. 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 will Rx with topical steroid and different gloves at work. 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 Was in counseling and had taken Paxil in past with +/- results. 2003 had psych hospitalization. Is applying for disability because of anxiety. Drusen of optic disc noted 03/13/13. Has not followed up with optomotrist Carpal tunnel syndrome Surgical History Status post repeat low transverse section History of esophagogastroduodenoscopy Previous section (03/15/16) low transverse uterine incision, Pfannensteil skin incision at 36 weeks G1 for severe preeclampsia History of low vertical section (02/17/16) at 36 weeks for failed induction due to preeclampsia Sigmoidoscopy section (06/22/16) 01/02/14 PC/S. Left wrist 02/2013 Endoscopic Carpal Tunnel release EGD - IV Sedation (~08/2011) DR. CANALES History of Surgical Procedure Primary delivery, Rui, followed by an elective Medardo Family History Mother Substance abuse Diabetes Depression Father Essential hypertension Hyperlipidemia Brother Substance abuse Depression Grandfather Diabetes Heart disease Hyperlipidemia Stroke Grandmother Personal history of malignant neoplasm LUNG Grandmother Diabetes Heart disease Stroke Sister Diabetes Brother Substance abuse Diabetes Depression Paternal Grandmother Heart disease Social History (Updated 04/03/24 @ 10:27 by Althea Macdonald) Smoking/Tobacco Use Status: Former Tobacco Use tobacco type: e-cigarettes Tobacco: How many years used: 10 Quit status: not considering quitting Second Hand Exposure: Yes Smoking risk assessment performed?: Yes Alcohol Intake: current Alcohol Intake frequency: holidays/special occasions only Alcohol type: beer Drug use: Rarely Substance use type: marijuana Adopted: Yes Caregiver/Support person: No Household members: spouse Housing: apartment Number of Children: 3 Communication Needs: None Do you need help understanding health information?: Never current occupation: stay at home mom Pets and animals: No Sexually active: Yes Do you think of yourself as: straight/heterosexual Current gender identity: female What is your relationship status?: How often do you talk on the phone with friends or family?: three or more times per week How often do you get together with friends or relatives?: three or more times per week Do you belong to any clubs or organized social groups?: no Panel score (0-1 are the most socially isolated patients): 2 What type of physical activity do you participate in: walking Duration: 45-60 minutes/day Frequency: 3-4 times per week Mary/Mandaen: Non anabaptism Special mary needs: No Seatbelt use: always Helmet use: Yes Helmet use: always Drive intox or ride w/intox seasonal delivery driver: No Firearms in home: No Do you feel safe at home: Yes Do you feel safe in your relationship?: Yes Would you like helpful sources: No History History 2 4 Para 2 Hx # Term Pregnancies 1 Multiple births 0 Hx # Pregnancies 1 Ectopic pregnancies 0 AB induced 0 Hx Number of Living Children 2 AB spontaneous 1 Past Pregnancies Del. Date GA/Weeks # Preg Succ Route Wgt Sex Labor Lgth Anesth esia Location [facility] 12/10/08 6 01/02/14 36 No 4394.176 g Female dx of pre- eclampsia and low blood levels yet pt not know what. regional Dr. Hernandez, [facility] 06/22/16 37 No 5.471 kg Male [facility] c/s regional Dr. Hernandez [facility] 05/19/20 37 No 5.245 kg Male regional [facility] Delivery Date: 12/10/08 Last Updated by: Bart Cordova CNM sab resolved at home w/o need for d&c. Delivery Date: 01/02/14 Last Updated by: Bart Cordova CNM low blood count probably assoc. with pre-e, yet w/o specifics. Delivery Date: 06/22/16 Last Updated by: Bart Cordova CNM w/o c/o.
[2024-04-15] MEDS: Ibuprofen 600 MG TAB PO (09:45)
== END 2024-04-15 10:10 | disposition home or self-care (01) ==
PROVIDERS: Emergency Provider Physician Assistant; PCP Nurse Practitioner Family
DX: K04.7 Periapical abscess without sinus (principal); K02.9 Dental caries, unspecified; S02.5XXA Fracture of tooth (traumatic), initial encounter for closed fracture
CPT/HCPCS: 99283

== ENCOUNTER 2024-09-21 15:26 | Emergency (ER) | payer MEDICAID, SELFPAY ==
[2024-09-21] VITALS (13 sets, daily range): BP systolic 143–181; BP diastolic 83–103; PULSE 63–97; RESP 15–30; TEMP 36.2–37.1; O2SAT 98–100
--- NOTE | 2024-09-21 15:15 | RT.EKG_ITS ---
APPROVED REPORT Exam: Resting ECG Reason for Exam: Chest Pain Patient Location: E HR:72 bpm ECG Measurements Heart Rate 72 AXIS UT 148 P 73 QRSd 103 QRS 59 QT 455 T 31 QTc 498 Conclusion Unknown rhythm, irregular rate...V-rate 55- 88, variation>10% No STEMI
[2024-09-21] MEDS: Famotidine 20 MG/2 ML VIAL IVP (16:49)
[2024-09-21] MEDS: ACETAMINOPHEN 500 MG/50 ML BAG 200 MG IVPB (16:49)
[2024-09-21] MEDS: Normal Saline 1,000 ML 1000 ML IV (16:49)
[2024-09-21] MEDS: Ondansetron 4 MG/2 ML VIAL IVP (16:50)
[2024-09-21 17:01] LABS: Abs Immature Grans 0.07 10^3/uL (0.0-0.06); Absolute Basophil Count 0.03 10^3/uL (0.0-0.2); Absolute Eosinophil Count 0.01 10^3/uL (0.0-0.7); Absolute Lymphocyte Count 0.76 10^3/uL (1.2-3.4); Absolute Monocyte Count 0.56 10^3/uL (0.1-0.8); Absolute Neutrophil Count 13.41 10^3/uL (1.2-6.7); Basophils % 0.2 %; Eosinophils % 0.1 %; HGB 13.8 g/dL (11.2-15.7); Immature Grans % 0.5 %; Lymphocytes % 5.1 %; MCH 29.1 pg (27.0-33.0); MCHC 33.7 % (32.0-36.0); MCV 86 fL (80-95); MPV 12.4 fL (8.0-11.0); Monocytes % 3.8 %; Neutrophils % 90.3 %; Platelet Count 183 10^3/uL (130-400); RBC 4.75 10^6/uL (3.93-5.22); RDW 12.3 % (11.7-14.6); RDW-SD 39.2 fL; WBC 14.85 10^3/uL (4.4-10.8)
[2024-09-21 17:19] LABS: ALT 32 U/L (14-59); AST 26 U/L (15-37); Albumin 4.2 g/dL (3.4-5.0); Alkaline Phosphatase 73 U/L (46-116); BUN 13 mg/dL (7-18); Bilirubin, Total 0.84 mg/dL (0.2-1.0); CREATININE 0.9 mg/dL (0.55-1.02); Calcium 9.7 mg/dL (8.5-10.1); Chloride 101 mmol/L (98-107); Glucose 230 mg/dL (74-106); Magnesium 1.2 mg/dL (1.8-2.4); Potassium 3.9 mmol/L (3.5-5.1); Sodium 139 mmol/L (136-145); Total Protein 8.4 g/dL (6.4-8.2)
[2024-09-21 17:21] LABS: Lipase 22 U/L (<78); Troponin I < 4 ng/L (<or=51)
[2024-09-21] MEDS: diazePAM 10 MG/2 ML SYR 2.5 MG IVP (17:33)
--- NOTE | 2024-09-21 18:00 | DI.RAD_ITS ---
Exam(s) XR CHEST 2V PA LATERAL EXAM: XR CHEST 2V PA LATERAL CLINICAL HISTORY: chest pain TECHNIQUE: 2D digital imaging was performed of the chest. Two images were obtained. PA and lateral views were obtained. COMPARISON: CR XR CHEST 2V PA LATERAL from 02/01/2023 FINDINGS: MEDIASTINUM: Normal. HEART: Normal. PULMONARY VASCULATURE: Normal. LUNGS: Clear. PLEURAL SPACE: No pleural effusion or pneumothorax. BONE:Within normal limits for the patient's age. OTHER FINDINGS:Normal. IMPRESSION: No acute pulmonary findings. DATA REPOSITORY: RADIATION DOSE DELIVERED:
[2024-09-21] MEDS: Magnesium Oxide 400 MG TAB 800 MG PO (18:29)
[2024-09-21] MEDS: MAGNESIUM SULFATE 2 GM/50 ML BAG IV_INF (18:30)
[2024-09-21 18:41] LABS: Troponin I 4 ng/L (<or=51)
[2024-09-21] MEDS: diazePAM 10 MG/2 ML SYR 5 MG IVP (18:58)
[2024-09-21] MEDS: Prochlorperazine 10 MG/2 ML VIAL 5 MG IVP ×2 (18:59→19:57)
[2024-09-21] MEDS: Lactated Ringers 1,000 ML 1000 ML IV (19:06)
--- NOTE | 2024-09-21 19:30 | RT.EKG_ITS ---
APPROVED REPORT Exam: Resting ECG Reason for Exam: qtc prolongation Patient Location: E HR:84 bpm ECG Measurements Heart Rate 84 AXIS AZ 173 P 78 QRSd 98 QRS 72 QT 426 T 43 QTc 503 Conclusion Sinus arrhythmia 84 no stemi
[2024-09-21 19:36] LABS: Bilirubin Negative (Negative); Blood Negative (Negative); Clarity Clear (Clear); Glucose Negative (Negative); Ketones 40 mg/dL (Negative); Leukocyte Esterase Negative (Negative); Nitrite Negative (Negative); Specific Gravity >= 1.030 (1.005-1.025); Urobilinogen 0.2 mg/dL (Up to 0.2)
[2024-09-21 19:40] LABS: Bacteria Few HPF (Negative); C & S Indicated? No; Casts Negative LPF (Negative); Crystals Negative HPF (Negative); Epithelial Cells Moderate HPF (Negative); Mucus Trace (Negative); RBC Negative HPF (0-2)
--- NOTE | 2024-09-21 19:46 | DI.VRAD_ITS ---
PROCEDURE INFORMATION: Exam: XR Chest Exam date and time: 09/21/2024 6:24 PM Age: 39 years old Clinical indication: Other: Unspecified; Chest pain TECHNIQUE: Imaging protocol: Radiologic exam of the chest. Views: 2 views. COMPARISON: CR XR CHEST 2V PA LATERAL 02/01/2023 1:46 PM FINDINGS: Lungs: No pulmonary consolidation is seen. Pleural spaces: No pleural effusion or pneumothorax is demonstrated. Heart/Mediastinum: The heart appears normal in size. Bones/joints: The visualized bony structures appear grossly intact, as seen. There are osteophytes along the thoracic spinal margin. IMPRESSION: No active disease is seen in the chest. Dictated and Authenticated by: Harjeet Shirley MD. Orderin Andres Chavis MD
[2024-09-21] MEDS: Dexamethasone 4 MG/ML VIAL IVP (19:56)
[2024-09-21] MEDS: FAMOTIDINE 20 MG in Normal Saline 100 ML 400 MG IVPB (19:58)
[2024-09-21] MEDS: Scopolamine 1 MG/3 DAYS PATCH TD (20:47)
--- NOTE | 2024-09-21 21:43 | ED.GENADUL_ITS ---
Discharge Plan Disposition Patient Disposition: Home Discharge Details Clinical Impression: Nausea vomiting and diarrhea, Hypomagnesemia Primary Care Provider: Gee Shannon ED Provider: Palmira Campos Home Meds and New Rx's Prescriptions: New prochlorperazine maleate [Compazine] 10 mg tablet 10 mg PO Q6H PRNQty: 14 0RF magnesium oxide 500 mg capsule 500 mg PO DAILY Qty: 14 0RF Continued multivitamin Tablet 1 tab PO DAILY cyclobenzaprine 10 mg tablet 10 mg PO HS PRN (Reason: muscle spasm) Qty: 10 0RF fluticasone propionate [Flovent HFA] 110 mcg/actuation HFA aerosol inhaler 2 puff inhalation BID Qty: 12 12RF (DME) FreeStyle Estela 2 [place] Misc See Rx Instructions .ROUTE .COMPLEX Qty: 1 6RF Dose Instruction: USE DIRECTED Rx Instructions: USE DIRECTED (DME) FreeStyle Precision Jose Strips Strip See Rx Instructions .Route Qty: 50 4RF Rx Instructions: Test QID when CGM system fails As directed (DME) lancets [FreeStyle Lancets] 28 gauge misc See Rx Instructions .Route Qty: 100 4RF Rx Instructions: Testing QID when CGM is not working As directed (DME) pen needle, diabetic 30 gauge x 5/16 needle See Rx Instructions .ROUTE .MEDSUPPLY Qty: 400 3RF Rx Instructions: Use with Tresiba BID and Novolog TID amitriptyline 10 mg tablet 10 mg PO QHS Qty: 90 3RF rosuvastatin [Crestor] 40 mg tablet 40 mg PO DAILY Qty: 90 4RF spironolactone 100 mg tablet 100 mg PO BID Qty: 180 1RF omeprazole 40 mg capsule,delayed release(DR/EC) 40 mg PO DAILY Qty: 90 3RF (DME) FreeStyle Estela 2 Sensor Kit See Rx Instructions .ROUTE .MEDSUPPLY Qty: 6 3RF Rx Instructions: diabetes as directed dulaglutide 1.5 mg/0.5 mL pen injector 1.5 mg subcut QWEEK Qty: 2 12RF albuterol sulfate [Ventolin HFA] 90 mcg/actuation HFA aerosol inhaler 2 puff inhalation Q6H PRNQty: 6.7 0RF Discharge Instructions Instructions: Nausea and vomiting in adults, Hypomagnesemia Additional Instructions: take compazine as needed for nausea and vomiting you have a scopolamine patch on, if you are feeling dizzy or confused, just remove the patch this patch can help with nausea and motion sickness make sure you are drinking small amounts every few minutes return earlier with new or worsening complaints Referrals: Gee Shannon, CAROLINE [Primary Care Provider] - 1 day HPI General Date/Time Provider Initiated Documentation: 09/21/24 16:08 . HPI Narrative: The patient is a 39-year-old female who presents with nausea, vomiting, and diarrhea that started this morning. She has vomited several times today and states her last episode of vomiting induced some chest discomfort. She does not have any shortness of breath. She does not have any diarrhea or chance of . She does not have any blood in vomitus. She does not have cough. Unknown fever per patient. She reports her daughter was sick with a fever 2 days ago. Related Data Home Medications ?Medication ?Instructions ?Recorded ?Confirmed multivitamin 1 tab PO DAILY 06/23/21 09/21/24 flash glucose scanning reader #1 ea 12/01/21 09/21/24 (FreeStyle Estela 2 [place]) blood sugar diagnostic (FreeStyle #50 ea 01/13/22 09/21/24 Precision Jose Strips) lancets 28 gauge (FreeStyle #100 ea 01/13/22 09/21/24 Lancets) pen needle, diabetic 30 gauge x #400 ea 04/29/22 09/21/2412/13 albuterol sulfate 90 mcg/actuation 2 puff inhalation Q6H PRN #6.7 02/01/23 09/21/24 aerosol inhaler (Ventolin HFA) grams fluticasone propionate 110 2 puff inhalation BID #12 grams 02/21/23 09/21/24 mcg/actuation HFA aerosol inhaler (Flovent HFA) cyclobenzaprine 10 mg tablet 10 mg PO HS PRN muscle spasm #10 06/19/23 09/21/24 tabs amitriptyline 10 mg tablet 10 mg PO QHS #90 tabs 07/17/23 09/21/24 rosuvastatin 40 mg tablet (Crestor) 40 mg PO DAILY #90 tabs 02/14/24 09/21/24 omeprazole 40 mg capsule,delayed 40 mg PO DAILY #90 caps 02/17/24 09/21/24 release spironolactone 100 mg tablet 100 mg PO BID #180 tabs 02/17/24 09/21/24 flash glucose sensor (FreeStyle #6 ea 07/04/24 09/21/24 Estela 2 Sensor kit) dulaglutide 1.5 mg/0.5 mL 1.5 mg (0.5 mL) subcut QWEEK #2 mL 07/05/24 09/21/24 subcutaneous pen injector magnesium oxide 500 mg capsule 500 mg PO DAILY #14 caps 09/21/24 prochlorperazine maleate 10 mg 10 mg PO Q6H PRN #14 tabs 09/21/24 tablet (Compazine) Previous Rx's ?Medication ?Instructions ?Recorded flash glucose scanning reader #1 ea 12/01/21 (FreeStyle Estela 2 [place]) blood sugar diagnostic (FreeStyle #50 ea 01/13/22 Precision Jose Strips) lancets 28 gauge (FreeStyle #100 ea 01/13/22 Lancets) pen needle, diabetic 30 gauge x #400 ea 04/29/2212/13 albuterol sulfate 90 mcg/actuation 2 puff inhalation Q6H PRN #6.7 02/01/23 aerosol inhaler (Ventolin HFA) grams fluticasone propionate 110 2 puff inhalation BID #12 grams 02/21/23 mcg/actuation HFA aerosol inhaler (Flovent HFA) cyclobenzaprine 10 mg tablet 10 mg PO HS PRN muscle spasm #10 06/19/23 tabs amitriptyline 10 mg tablet 10 mg PO QHS #90 tabs 07/17/23 rosuvastatin 40 mg tablet (Crestor) 40 mg PO DAILY #90 tabs 02/14/24 omeprazole 40 mg capsule,delayed 40 mg PO DAILY #90 caps 02/17/24 release spironolactone 100 mg tablet 100 mg PO BID #180 tabs 02/17/24 flash glucose sensor (FreeStyle #6 ea 07/04/24 Estela 2 Sensor kit) dulaglutide 1.5 mg/0.5 mL 1.5 mg (0.5 mL) subcut QWEEK #2 mL 07/05/24 subcutaneous pen injector magnesium oxide 500 mg capsule 500 mg PO DAILY #14 caps 09/21/24 prochlorperazine maleate 10 mg 10 mg PO Q6H PRN #14 tabs 09/21/24 tablet (Compazine) Allergies Allergy/AdvReac Type Severity Reaction Status Date / Time Latex, Natural Rubber Allergy Mild Skin Rash Verified 09/21/24 15:32 metformin AdvReac Unknown DIARRHEA Verified 09/21/24 15:32 General Stated Complaint: Abd Prob JED: 3 Exam Narrative Exam Narrative: General Appearance: Patient is alert and oriented. She is pale and appears unwell. Vital signs: Within normal limits. HEENT: Within normal limits. Respiratory: Lungs are clear to auscultation. Gastrointestinal: No abdominal tenderness. Extremities: No peripheral edema or calf swelling or tenderness. Skin: Warm and dry, no rash. Neurological: Normal. Course Vital Signs Vital signs: Vital Signs Temperature 36.2 C L 09/21/24 15:30 Pulse 77 09/21/24 15:30 Respiratory Rate 15 09/21/24 15:30 Blood Pressure 143/84 H 09/21/24 15:30 Pulse Oximetry 98 09/21/24 15:30 Temperature 37.1 C 09/21/24 16:07 Pulse 65 09/21/24 20:30 Pulse 74 09/21/24 20:30 Respiratory Rate 22 09/21/24 20:30 Respiratory Effort Normal 09/21/24 16:15 Respiratory Depth Normal 09/21/24 16:15 Respiratory Pattern Normal 09/21/24 16:15 Blood Pressure 174/91 H 09/21/24 20:30 Blood Pressure Mean 117 09/21/24 20:30 Blood Pressure Position Supine 09/21/24 16:07 Pulse Oximetry 100 09/21/24 20:01 Oxygen Delivery Method Room Air 09/21/24 16:07 Oxygen Flow Rate 0 09/21/24 15:30 Pain Level 9 09/21/24 16:15 Lab/Test Results Lab/Test Results: Laboratory Tests Range/Units 09/21/24 09/21/24 09/21/24 16:50 18:16 19:25 WBC (4.4-10.8) 10^3/uL 14.85 H RBC (3.93-5.22) 10^6/uL 4.75 Hgb (11.2-15.7) g/dL 13.8 Hct (36.0-46.0) % 41.0 MCV (80-95) fL 86 MCH (27.0-33.0) pg 29.1 MCHC (32.0-36.0) % 33.7 RDW (11.7-14.6) % 12.3 Plt Count (130-400) 10^3/uL 183 MPV (8.0-11.0) fL 12.4 H Immature Gran % % 0.5 Neutrophils % % 90.3 Lymphocytes % % 5.1 Monocytes % % 3.8 Eosinophils % % 0.1 Basophils % % 0.2 Nucleated RBC % (0.0-0.3) % 0.0 Absolute Neutrophils (1.2-6.7) 10^3/uL 13.41 H Absolute Lymphocytes (1.2-3.4) 10^3/uL 0.76 L Absolute Monocytes (0.1-0.8) 10^3/uL 0.56 Absolute Eosinophils (0.0-0.7) 10^3/uL 0.01 Absolute Basophils (0.0-0.2) 10^3/uL 0.03 Sodium (136-145) mmol/L 139 Potassium (3.5-5.1) mmol/L 3.9 Chloride (98-107) mmol/L 101 Carbon Dioxide (21.0-32.0) mmol/L 27.0 Anion Gap (3-11) mmol/L 11.0 BUN (7-18) mg/dL 13 Creatinine (0.55-1.02) mg/dL 0.9 Est GFR (CKD-EPI 2020) (mL/min/1.73m2) 83.40 Glucose (74-106) mg/dL 230 H Calcium (8.5-10.1) mg/dL 9.7 Magnesium (1.8-2.4) mg/dL 1.2 L Total Bilirubin (0.2-1.0) mg/dL 0.84 AST (15-37) U/L 26 ALT (14-59) U/L 32 Alkaline Phosphatase (46-116) U/L 73 Troponin I (<or=51) ng/L < 4 4 Total Protein (6.4-8.2) g/dL 8.4 H Albumin (3.4-5.0) g/dL 4.2 Lipase (<78) U/L 22 Urine Color (Yellow) Yellow Urine Clarity (Clear) Clear Urine pH (5-8) 7.0 Ur Specific Roxana (1.005-1.025) >= 1.030 H Urine Protein (Neg-Trace) mg/dL 30 H Urine Ketones (Negative) mg/dL 40 H Urine Blood (Negative) Negative Urine Nitrite (Negative) Negative Urine Bilirubin (Negative) Negative Urine Urobilinogen (Up to 0.2) mg/dL 0.2 Ur Leukocyte Esterase (Negative) Negative Urine RBC (0-2) HPF Negative Urine WBC (0-5) HPF 3-5 Ur Epithelial Cells (Negative) HPF Moderate Urine Crystals (Negative) HPF Negative Urine Bacteria (Negative) HPF Few Urine Casts (Negative) LPF Negative Urine Mucus (Negative) Trace Ur Culture Indicated? No Urine Glucose (Negative) mg/dL Negative POC- Test(urine) Negative Medical Decision Making Laboratory Studies White count of 14,000, neutrophil count of 13,000. Glucose of 230 consistent with patient's history of diabetes. Magnesium notable at 1.2. Urinalysis did not show evidence of infection. She does have ketones. She was flu and COVID-19 negative. Imaging Chest x-ray per radiology interpretation and my review is negative for acute pathology. Initial Assessment: 39-year-old female with nausea, vomiting, and diarrhea starting this morning. Vomited several times, last episode induced chest discomfort. Denies shortness of breath, diarrhea, , blood in vomitus, cough, and unknown fever. Alert, oriented, pale, unwell, no abdominal tenderness, clear lungs, no chest wall crepitus, no peripheral edema or calf tenderness. Differential Diagnosis: - Viral Gastroenteritis: Likely viral etiology given symptoms and recent illness in daughter. Plan: Observation, antiemetics, fluids, and discharge with return precautions. ED Course: - Labs: White count 14,000, neutrophil count 13,000, glucose 230, magnesium 1.2, ketones present. - Treatments: 2 g magnesium IV, 800 mg magnesium oxide orally, 2 L fluids, multiple antiemetics (Compazine x2, Valium x2), scopolamine patch. - Diagnostics: Urinalysis negative for infection, chest x-ray negative for acute pathology (read by radiology and reviewed by me), flu and Covid negative. - Reassessment: Improvement noted, nausea returns with head movement. Prescription for Compazine provided. Return precautions reviewed and understood. Final Assessment: Patient observed for 5 hours, treated with fluids, antiemetics, and magnesium. Improvement noted, but nausea persists with head movement. Discharged with medications and return precautions. Clinical Impression: - Nausea, vomiting, and diarrhea - Hypomagnesemia - Diabetes Mellitus - Ketosis - QTc prolongation Disposition: - Discharge: Patient discharged home with prescription for Compazine and magnesium supplementation. - Follow-Up: Return precautions reviewed and understood. MDM Components Evaluation: - Number of Differential Diagnoses or Management Options: Viral Gastroenteritis - Amount and Complexity of Data Reviewed: Labs (white count, neutrophil count, glucose, magnesium, ketones), urinalysis, chest x-ray, flu and Covid tests. - Risk of Complication and Morbidity or Mortality: Moderate risk due to diabetes, hypomagnesemia, and QTc prolongation. Quality:SDOH Health Related Social Needs: Health related social needs details Would like assista nce/recourses Critical Care Time Critical Care Time Attestation: 35 minutes of critical care time secondary to hypomagnesemia 1.2. QTc prolongation requiring IV magnesium and p.o. 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 Began Lantus 2012 with Novalog added. No retinopathy 06/25/13 HbgA1c 9.5 08/23/13 HbgA1c 7.1 10/23/13 HbgA1c 8.0 Hypothyroidism (Chronic 07/26/13) per [facility] MFM recommendation, treat to keep TSH < 2.0 during ; last 05-16- wnl 12/06/19- TSH=1.85 Morbid obesity with BMI of 40.0-44.9, adult (Chronic) Smoker (Acute) Hyperlipidemia (Chronic 02/14/12) Depressive disorder (Chronic) ? of bipolar; hosp. 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 will Rx with topical steroid and different gloves at work. 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 Was in counseling and had taken Paxil in past with +/- results. 2003 had psych hospitalization. Is applying for disability because of anxiety. Drusen of optic disc noted 03/13/13. Has not followed up with optomotrist Carpal tunnel syndrome Surgical History Status post repeat low transverse section History of esophagogastroduodenoscopy Previous section (03/15/16) low transverse uterine incision, Pfannensteil skin incision at 36 weeks G1 for severe preeclampsia History of low vertical section (02/17/16) at 36 weeks for failed induction due to preeclampsia Sigmoidoscopy section (06/22/16) 01/02/14 PC/S. Left wrist 02/2013 Endoscopic Carpal Tunnel release EGD - IV Sedation (~08/2011) DR. CANALES History of Surgical Procedure Primary delivery, Rui, followed by an elective Medardo Family History Mother Substance abuse Diabetes Depression Father Essential hypertension Hyperlipidemia Brother Substance abuse Depression Grandfather Diabetes Heart disease Hyperlipidemia Stroke Grandmother Personal history of malignant neoplasm LUNG Grandmother Diabetes Heart disease Stroke Sister Diabetes Brother Substance abuse Diabetes Depression Paternal Grandmother Heart disease Social History (Updated 04/03/24 @ 10:27 by Althea Macdonald) Smoking/Tobacco Use Status: Former Tobacco Use tobacco type: e-cigarettes Tobacco: How many years used: 10 Quit status: not considering quitting Second Hand Exposure: Yes Smoking risk assessment performed?: Yes Alcohol Intake: current Alcohol Intake frequency: holidays/special occasions only Alcohol type: beer Drug use: Rarely Substance use type: marijuana Adopted: Yes Caregiver/Support person: No Household members: spouse Housing: apartment Number of Children: 3 Communication Needs: None Do you need help understanding health information?: Never current occupation: stay at home mom Pets and animals: No Sexually active: Yes Do you think of yourself as: straight/heterosexual Current gender identity: female What is your relationship status?: How often do you talk on the phone with friends or family?: three or more times per week How often do you get together with friends or relatives?: three or more times per week Do you belong to any clubs or organized social groups?: no Panel score (0-1 are the most socially isolated patients): 2 What type of physical activity do you participate in: walking Duration: 45-60 minutes/day Frequency: 3-4 times per week Mary/Jain: Non yazdanism Special mary needs: No Seatbelt use: always Helmet use: Yes Helmet use: always Drive intox or ride w/intox residential recycle driver: No Firearms in home: No Do you feel safe at home: Yes Do you feel safe in your relationship?: Yes Would you like helpful sources: No History History 4 Para 2 Hx # Term Pregnancies 1 Multiple births 0 Hx # Pregnancies 1 Ectopic pregnancies 0 AB induced 0 Hx Number of Living Children 2 AB spontaneous 1 Past Pregnancies Del. Date GA/Weeks # Preg Succ Route Wgt Sex Labor Lgth Anesth esia Location [facility] 12/10/08 6 01/02/14 36 No 4394.176 g Female dx of pre- eclampsia and low blood levels yet pt not know what. regional Dr. Hernandez, [facility] 06/22/16 37 No 5.471 kg Male [facility] Dr. Hernandez [facility] 05/19/20 37 No 5.245 kg [place] [facility] Delivery Date: 12/10/08 Last Updated by: Bart Cordova CNM sab resolved at home w/o need for d&c. Delivery Date: 01/02/14 Last Updated by: Bart Cordova CNM low blood count probably assoc. with pre-e, yet w/o specifics. Delivery Date: 06/22/16 Last Updated by: Bart Cordova CNM w/o c/o.
== END 2024-09-21 20:54 | disposition home or self-care (01) ==
PROVIDERS: Emergency Provider Physician Assistant; PCP Nurse Practitioner Family
DX: R11.2 Nausea with vomiting, unspecified (principal); R19.7 Diarrhea, unspecified; E83.42 Hypomagnesemia; F17.290 Nicotine dependence, other tobacco product, uncomplicated
CPT/HCPCS: 80053; 83690; 93005; 96361; 96365; 96366; 96367; 96368; 96375; 96376; 99291; 71046; 81003; 81015; 83735; 84484; 85025; 93010; J0131; J0780; J1100; J2405; J3360; J3475